=== PATIENT | female | born 1960 | race Caucasian/White ===

== ENCOUNTER 2016-12-28 14:06 | Inpatient (IN) | payer OTHER ==
[2016-12-28 14:15] VITALS: BMI 40.2
--- NOTE | 2016-12-28 14:19 | DR.GENAD ---
HPI - PCP Primary Care Physician: ANTONY - HPI Comment HPI Comment: PATIENT SAID SYMYOMS WORSE TODAY. NO FEVER. NON PRODUCTIVE COUGH. PATIENT SYMTOMS SIMILAR TO WHEN SHE SUFFER CVA IN THE PAST. - Complaint/Symptoms Chief Complaint Doctors Comments: HEADACHE, CHEST PAIN AND FORGETFULNESS TIMES 5 DAYS. Chief Complaint:: PT C/O HEADACHE THAT IS THE SAME THAT SHE HAS HAD BEFORE WHEN SHE HAD A STROKE. PT STATES SHE IS HAVING PROBLEMS REMEMBERING THINGS. (THIS IS A NEW SYMPTOM PER PT) - Nurses notes reviewed Nurses Notes Review: Yes - Source History Provided: Patient - Mode of Arrival Mode of Arrival: Ambulatory - Timing Onset of Chief Complaint: 12/22/16 Came on: Suddenly - Duration Duration: Constant Duration: Days - Severity Severity: Moderate PMH - PMH Past Medical History: Yes Past Medical History: Asthma, CVA, Diabetes, Dialysis, Hypothyroidism, Renal Disease Past Surgical History: Yes - Family History History of Family Medical Conditions: No Family Medical History: Cancer - Social History Does any household member use tobacco: No Alcohol Use: None Do you use any recreational Drugs:: No Lives With: Mom, Family Lives Where: Home - infectious screening In the last 2 months have you had wt loss of >10#?: NO Have you had fever, night sweats or hemotysis?: No Have you traveled outside the country in the last 6 months?: No Isolation: Standard ROS - Review of Systems Constitutional: Weakness, Fatigue. negative: Chills, Fever Eyes: No Symptoms Reported. negative: Eye Pain, Discharge ENTM: No Symptoms Reported. negative: Ear Pain, Nose Discharge, Nose Congestion , Throat Pain Respiratoy: Non-Productive Cough, Short of Breath, Wheezing. negative: Hemoptysis Cardiovascular: Chest Pain, Edema, Palpitations Gastrointestinal/Abdominal: negative: Abdominal Pain, Constipation, Diarrhea, Nausea, Vomiting Genitourinary: No Symptoms Reported. negative: Dysuria Neurological: Headache, Weakness, Dizziness Musculoskeletal: Muscle Pain Integumentary: No Symptoms Reported Hematologic/Lymphatic: No Symptoms Reported Endocrine: No Symptoms Reported All Other Systems: Reviewed and Negative PE - Vital Signs Vitals: Temperature 98.3 F Respiratory Rate 20 Blood Pressure 108/73 - General Limitations: No Limitations General Appearance: Alert - Head Head Exam: Normal Inspection - Eyes Eye exam: Normal Appearance - ENT ENT Exam: Normal External Ear Exam External Ear Exam: Normal External Inspection TM/Canal Exam: Bilateral Normal Nose Exam: Normal Nose Exam Mouth Exam: Normal Inspection Throat Exam: Normal Inspection - Neck Neck Exam: Trachea Midline - Chest Chest Inspection: Symmetric Chest Wall Rise - Respiratory Respiratory Exam: Respiratory Distress Respiratory Exam: Bilateral Rhonchi, Lower Rhonchi - Cardiovascular Cardiovascular Exam: Tachycardia, Normal Heart Sounds - Abdominal Exam Abdominal Exam: Normal Bowel Sounds, Soft. negative: Tenderness - Extremities Extremities Exam: Edema - Back Back Exam: Normal Inspection - Neurologic Neurological Exam: Alert, Oriented X3 - Psychiatric Psychiatric Exam: Normal Affect, Normal Mood - Skin Skin Exam: Normal Color MDM - Additional Information Additional Information Obtained From: Family - Differential Diagnosis Differential Diagnosis: HEADACHE, CHEST PAIN, SOB, Course - Treatment Treatment: SEE ORDERS. - Education/Counseling Education/Counseling: Patient, Family, Education Educated On: Diagnosis, Needs for Follow Up ROR - Labs Reviewed Laboratory Results Reviewed?: Yes Result Diagrams: 12/29/16 05:28 12/29/16 05:28 Laboratory: WBC 6.2 X10^3/uL (3.6-10.0) 12/28/16 14:41 RBC 4.37 X10^6/uL (3.5-5.4) 12/28/16 14:41 Hgb 11.2 g/dL (12.0-16.0) L 12/28/16 14:41 Hct 33.8 % (36.0-47.0) L 12/28/16 14:41 MCV 77.3 fL (80.0-100.0) L 12/28/16 14:41 MCH 25.7 pg (27.0-34.0) L 12/28/16 14:41 MCHC 33.2 g/dL (33.0-35.0) 12/28/16 14:41 RDW 25.7 % (11.6-16.5) H 12/28/16 14:41 Plt Count 236 X10^3/uL (150.0-450.0) 12/28/16 14:41 Plt Count Comment Adequate (ADEQUATE) 12/28/16 14:41 MPV 8.3 fL (7.4-11.0) 12/28/16 14:41 Neut % 47.5 % (42.0-75.0) 12/28/16 14:41 Lymph % 38.2 % (21.0-51.0) 12/28/16 14:41 Granite % 11.6 % (0.0-13.0) 12/28/16 14:41 Eos % 1.9 % (0.9-2.9) 12/28/16 14:41 Baso % 0.8 % (0.2-1.0) 12/28/16 14:41 Neut # 2.9 x10^3/uL (2.2-4.8) 12/28/16 14:41 Lymph # 2.4 X10^3/uL (1.3-2.9) 12/28/16 14:41 Granite # 0.7 x10^3/uL (0.3-0.8) 12/28/16 14:41 Eos # 0.1 x10^3/uL (0.0-0.2) 12/28/16 14:41 Baso # 0.0 X10^3/uL (0.0-0.1) 12/28/16 14:41 Absolute Nucleated RBC 0.2 /100WBC 12/28/16 14:41 Plt Morphology Comment Normal (NORMAL) 12/28/16 14:41 RBC Morphology Abnormal (NORMAL) A 12/28/16 14:41 Hypochromasia Slight A 12/28/16 14:41 Anisocytosis 3+ A 12/28/16 14:41 INR Target Range - 12/28/16 14:41 INR 1.11 (0.8-1.3) 12/28/16 14:41 PTT 24.1 SECONDS (22.9-36.5) 12/28/16 14:41 PTT Comment - 12/28/16 14:41 Sodium 132 mmol/L (136-145) L 12/28/16 14:41 Corrected Sodium 133 mmol/L (136-145) L 12/28/16 14:41 Potassium 4.9 mmol/L (3.5-5.1) 12/28/16 14:41 Chloride 95 mmol/L (98-107) L 12/28/16 14:41 Carbon Dioxide 31.4 mmol/L (21-32) 12/28/16 14:41 BUN 51 mg/dL (7-18) H 12/28/16 14:41 Creatinine 3.50 mg/dL (0.55-1.02) H 12/28/16 14:41 Est GFR (MDRD) Af Amer 17 (>60) L 12/28/16 14:41 Est GFR (MDRD) Non-Af 14 (>60) L 12/28/16 14:41 Glucose 146 mg/dL (65-99) H 12/28/16 14:41 Calcium 8.8 mg/dL (8.5-10.1) 12/28/16 14:41 Corrected Calcium TNP 12/28/16 14:41 Total Bilirubin 0.40 mg/dL (0.2-1.0) 12/28/16 14:41 AST 19 Units/L (15-37) 12/28/16 14:41 ALT 16 Units/L (12-78) 12/28/16 14:41 Alkaline Phosphatase 64 Units/L (46-116) 12/28/16 14:41 Creatine Kinase 254 Units/L (26-192) H 12/28/16 14:41 CK-MB (CK-2) < 1.0 ng/mL (0-4.0) 12/28/16 14:41 CK/CKMB % Calc 0.4 % (<4) 12/28/16 14:41 Troponin I < 0.02 ng/mL (0-1.5) 12/28/16 14:41 Total Protein 7.5 g/dL (6.4-8.2) 12/28/16 14:41 Albumin 3.4 g/dL (3.4-5.0) 12/28/16 14:41 Globulin 4.1 g/dL (2.5-4.5) 12/28/16 14:41 Albumin/Globulin Ratio 0.8 Ratio (1.1-2.1) L 12/28/16 14:41 - XRAY XRAY Interpreted by: Radiologist XRAY Findings: REPORT DISCUSS WITH PATIENT. - Diagnosis Discharge Problem: Uremia, Dehydration Chest pain Qualifiers: Chest pain type: unspecified Qualified Code(s): R07.9 - Chest pain, unspecified Headache Qualifiers: Headache type: unspecified Headache chronicity pattern: acute headache Intractability: intractable Qualified Code(s): R51 - Headache - Discharge Plan Disposition: ADMITTED INPATIENT Condition: Stable - Follow ups/Referrals - Instructions
[2016-12-28 14:48] LABS: BASOPHILS % (AUTO) 0.8 % (0.2-1.0); EOSINOPHILS # (AUTO) 0.1 x10^3/uL (0.0-0.2); EOSINOPHILS % (AUTO) 1.9 % (0.9-2.9); HEMATOCRIT 33.8 % (36.0-47.0); HEMOGLOBIN 11.2 g/dL (12.0-16.0); LYMPHOCYTES # (AUTO) 2.4 X10^3/uL (1.3-2.9); LYMPHOCYTES % (AUTO) 38.2 % (21.0-51.0); MEAN CORPUSCULAR HEMOGLOBIN 25.7 pg (27.0-34.0); MEAN CORPUSCULAR HGB CONC 33.2 g/dL (33.0-35.0); MEAN CORPUSCULAR VOLUME 77.3 fL (80.0-100.0); MEAN PLATELET VOLUME 8.3 fL (7.4-11.0); MONOCYTES # (AUTO) 0.7 x10^3/uL (0.3-0.8); MONOCYTES % (AUTO) 11.6 % (0.0-13.0); NEUTROPHILS # (AUTO) 2.9 x10^3/uL (2.2-4.8); NEUTROPHILS % (AUTO) 47.5 % (42.0-75.0); PLATELET COUNT 236 X10^3/uL (150.0-450.0); RED BLOOD COUNT 4.37 X10^6/uL (3.5-5.4); RED CELL DISTRIBUTION WIDTH 25.7 % (11.6-16.5); WHITE BLOOD COUNT 6.2 X10^3/uL (3.6-10.0)
[2016-12-28 15:07] LABS: BLOOD UREA NITROGEN 51 mg/dL (7-18); CALCIUM 8.8 mg/dL (8.5-10.1); CARBON DIOXIDE 31.4 mmol/L (21-32); CHLORIDE 95 mmol/L (98-107); COR NA(FOR HYPERGLY) 133 mmol/L (136-145); GLUCOSE 146 mg/dL (65-99); SODIUM 132 mmol/L (136-145); TROPONIN I < 0.02 ng/mL (0-1.5); eGFR BLACK RACES 17 (>60); eGFR NON BLACK RACES 14 (>60)
[2016-12-28 15:11] LABS: ALANINE AMINOTRANSFERASE 16 Units/L (12-78); ALBUMIN 3.4 g/dL (3.4-5.0); ALKALINE PHOSPHATASE 64 Units/L (46-116); ASPARTATE AMINO TRANSFERASE 19 Units/L (15-37); CKMB % 0.4 % (<4); CREATINE KINASE 254 Units/L (26-192); CREATINE KINASE MB < 1.0 ng/mL (0-4.0); TOTAL PROTEIN 7.5 g/dL (6.4-8.2)
[2016-12-28 15:13] LABS: HYPOCHROMASIA SLIGHT; PLATELET MORPHOLOGY COMMENT NORMAL (NORMAL)
[2016-12-28 15:14] LABS: ANISOCYTOSIS 3+
--- NOTE | 2016-12-28 15:43 | RAD ---
AP Chest Indication: Chest pain and weakness Comparison: None available Findings: There is elevation the right hemidiaphragm. The trachea is midline. The cardiac silhouette is unremarkable. The lungs are clear without focal infiltrate or effusion. The bony thorax is unremarkable. IMPRESSION: 1. No acute cardiopulmonary abnormality. Reported By:
--- NOTE | 2016-12-28 16:28 | CT ---
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 There is no intracranial hemorrhage or mass or edema or subdural collection of fluid. There is a small retention cyst in the floor of the right maxillary sinus medially. The calvarium is intact. Impression: No acute intracranial dizzy Reported By:
[2016-12-28] MEDS: NS 1000 ML 1,000 ML IV SCH (18:25)
[2016-12-28 19:50] LABS: BILIRUBIN,URINE NEGATIVE (NEGATIVE); BLOOD/HEMOGLOBIN,URINE NEGATIVE (NEGATIVE); GLUCOSE, URINE NEGATIVE (NEGATIVE); KETONES,URINE NEGATIVE (NEGATIVE); LEUKOCYTE ESTERASE ,URINE NEGATIVE (NEGATIVE); NITRITES,URINE NEGATIVE (NEGATIVE); PROTEIN,URINE NEGATIVE (NEGATIVE); UROBILINOGEN,URINE NORMAL (NORMAL)
[2016-12-28 19:57] LABS: AMORPHOUS SEDIMENT,UR TRACE /HPF (NEGATIVE); APPEARANCE,URINE CLEAR (CLEAR); BACTERIA,URINE TRACE /HPF (NEGATIVE); COLOR,URINE YELLOW (YELLOW); RBC,URINE 0-1 /HPF (NEGATIVE); SQUAMOUS EPITHELIAL CELL,UR FEW /HPF (NEGATIVE)
[2016-12-28] MEDS ORDERED: PATIENT'S HOME MEDICATION (Cetirizine Hcl [Zyrtec] 10 MG) PO SCH (21:00)
[2016-12-28] MEDS ORDERED: ZyrTEC TAB 10 MG PO SCH (21:00)
[2016-12-28 21:23] LABS: CKMB % 0.5 % (<4); CREATINE KINASE 217 Units/L (26-192); CREATINE KINASE MB < 1.0 ng/mL (0-4.0); TROPONIN I < 0.02 ng/mL (0-1.5)
[2016-12-28] MEDS: KLONOPIN TAB 1 MG PO SCH (22:12)
[2016-12-28] MEDS: NEURONTIN CAP 300 MG PO SCH (22:14)
[2016-12-28] MEDS: DEPAKOTE D.R. TAB PO SCH (22:14)
[2016-12-28] MEDS: ZOCOR TAB 40 MG PO SCH (22:15)
[2016-12-28] MEDS: MYSOLINE PO SCH (22:15)
[2016-12-29] MEDS: NS 1000 ML 1,000 ML IV SCH ×3 (05:29→18:34)
[2016-12-29] MEDS ORDERED: HumuLIN R ONE (05:32)
[2016-12-29] MEDS: HumuLIN R SUBCUT PRN ×2 (05:34→17:41)
[2016-12-29 05:57] LABS: BASOPHILS % (AUTO) 0.6 % (0.2-1.0); EOSINOPHILS # (AUTO) 0.1 x10^3/uL (0.0-0.2); EOSINOPHILS % (AUTO) 2.6 % (0.9-2.9); HEMATOCRIT 31.6 % (36.0-47.0); HEMOGLOBIN 10.5 g/dL (12.0-16.0); LYMPHOCYTES # (AUTO) 2.1 X10^3/uL (1.3-2.9); MEAN CORPUSCULAR HGB CONC 33.3 g/dL (33.0-35.0); MEAN CORPUSCULAR VOLUME 78.3 fL (80.0-100.0); MEAN PLATELET VOLUME 8.4 fL (7.4-11.0); MONOCYTES # (AUTO) 0.5 x10^3/uL (0.3-0.8); MONOCYTES % (AUTO) 11.9 % (0.0-13.0); NEUTROPHILS # (AUTO) 1.5 x10^3/uL (2.2-4.8); NEUTROPHILS % (AUTO) 35.9 % (42.0-75.0); PLATELET COUNT 192 X10^3/uL (150.0-450.0); RED BLOOD COUNT 4.04 X10^6/uL (3.5-5.4); RED CELL DISTRIBUTION WIDTH 25.9 % (11.6-16.5); WHITE BLOOD COUNT 4.3 X10^3/uL (3.6-10.0)
[2016-12-29 06:13] LABS: ALANINE AMINOTRANSFERASE 14 Units/L (12-78); ALBUMIN 2.8 g/dL (3.4-5.0); ALKALINE PHOSPHATASE 55 Units/L (46-116); ASPARTATE AMINO TRANSFERASE 14 Units/L (15-37); BLOOD UREA NITROGEN 43 mg/dL (7-18); CALCIUM 7.9 mg/dL (8.5-10.1); CARBON DIOXIDE 28.4 mmol/L (21-32); CHLORIDE 101 mmol/L (98-107); CHOL/HDL RATIO 5.5 (0.0-5.0); CHOLESTEROL 154 mg/dL (0-200); CKMB % 0.8 % (<4); COR CA(FOR HYPOALB) 8.9 mg/dL (8.5-10.1); COR NA(FOR HYPERGLY) 138 mmol/L (136-145); CREATINE KINASE 129 Units/L (26-192); CREATINE KINASE MB < 1.0 ng/mL (0-4.0); CREATININE 2.65 mg/dL (0.55-1.02); GLUCOSE 151 mg/dL (65-99); HDL CHOLESTEROL 28 mg/dL (40-60); SODIUM 137 mmol/L (136-145); TOTAL PROTEIN 6.4 g/dL (6.4-8.2); TRIGLYCERIDES 224 mg/dL (0-150); TROPONIN I < 0.02 ng/mL (0-1.5); eGFR BLACK RACES 24 (>60); eGFR NON BLACK RACES 20 (>60)
[2016-12-29 07:01] LABS: ANISOCYTOSIS 2+; PLATELET MORPHOLOGY COMMENT NORMAL (NORMAL)
[2016-12-29] MEDS ORDERED: PATIENT'S HOME MEDICATION (Fluoxetine Hcl [Prozac Cap 40 Mg] 40 MG) PO SCH (09:00)
[2016-12-29] MEDS: DEPAKOTE D.R. TAB PO SCH ×2 (09:54→20:58)
[2016-12-29] MEDS: ALDACTONE TAB 25 MG PO SCH (09:54)
[2016-12-29] MEDS: PROzac PO SCH (09:54)
[2016-12-29] MEDS: OSCAL+D or CALTRATE+D PO SCH (09:54)
[2016-12-29] MEDS: ZYLOPRIM PO SCH (09:55)
[2016-12-29] MEDS: ASPIRIN EC 81 MG PO SCH (09:55)
[2016-12-29] MEDS: PROTONIX TAB 40 MG PO SCH (09:55)
[2016-12-29] MEDS: NEURONTIN CAP 300 MG PO SCH ×2 (09:55→20:57)
[2016-12-29 11:11] LABS: CKMB % 0.9 % (<4); CREATINE KINASE 116 Units/L (26-192); CREATINE KINASE MB < 1.0 ng/mL (0-4.0); TROPONIN I < 0.02 ng/mL (0-1.5)
[2016-12-29] MEDS ORDERED: ZOFRAN INJ 4 MG VIAL IVP PRN (11:37)
--- NOTE | 2016-12-29 12:09 | VAS ---
HISTORY: Dizziness, visual disturbance Study: Carotid sonogram Comparison: None Technique: Multiple noriega scale and color flow Doppler images of the right and left carotid arterial system were obtained. The vertebral arterial system was evaluated as well. Findings: Normal color flow Doppler is seen throughout the right and left carotid arterial system. No hemodyn amically significant stenosis is seen based on velocity criteria. The right and left vertebral rob toni demonstrate antegrade flow. IMPRESSION: 1. No hemodynamically significant stenosis. Reported By:
--- NOTE | 2016-12-29 12:51 | DR.H&P ---
H&P - History & Physical for Day of: H&P Date: 12/28/16 - Chief Complaint Chief Complaint: UREMIA, DEHYDRATION, CHEST PAIN, HEADACHE - Allergies Allergies/Adverse Reactions: Allergies Allergy/AdvReac Type Severity Reaction Status Date / Time No Known Drug Allergies Allergy Verified 12/28/16 14:08 - History of Present Illness History of Present Illness: IS A 56 YEAR OLD PATIENT OF OURS WHO PRESENTED TO THE EMERGENCY ROOM WITH COMPLAINTS OF CHEST PAIN, HEADACHE, WEAKNESS, AND ALTERED MENTAL STATUS FOR 5 DAYS PRIOR TO COMING TO ER. SHE DENIED A PRODUCTIVE COUGH OR FEVER. SHE REPORTED A HISTORY OF CVA AND STATED THAT THESE SYMPTOMS WERE SIMILAR TO WHEN SHE WAS DIAGNOSED WITH IT. LABS AND XRAYS WERE OBTAINED. CBC WNL EXCEPT HGB 11.2, HCT 33.8. CMP WNL EXCEPT SODIUM 132, CHLORIDE 95, BUN 51, CREATININE 3.50, GLUCOSE 146, CREATININE KINASE 254. VALPROIC ACID 20.[address] REPORTED NEGATIVE FOR ACUTE INTRACRANIAL ABNORMALITY. CHEST XRAY CLEAR. CARDIAC ENZYMES WNL. EKG REPORTS SINUS RHYTHM. WE ADMITTED PATIENT FOR FURTHER TREATMENT AND EVALUATION. SHE WAS STARTED ON NS @75ML/HR AND HOME MEDICATIONS WERE REVIEWED. WE PLANNED TO CHECK SERIAL CARDIAC ENZYMES AND EKG, RECHECK LABS AND FOLLOW UP WITH PATIENT IN AM. - Past Medical History Past Medical History: Anemia, Anxiety, Asthma, CHF, COPD, CVA, Depression, Diabetes, Dialysis, GERD, Hypertension, Hypothyroidism, Renal Disease Additional Medical History: PULMONARY EMBOLISMS, CONSTIPATION, UTIs, DDD, - Past Surgical History Surgical History: Appendectomy, Other Additional Surgical History: OVARIAN CYST, CARPEL TUNNEL RIGHT ARM, NASAL POLYPS - Family History Family Medical History: Cancer - Social History Does patient currently use any type of tobacco product: No Have you used tobacco products in the last 12 months: No Type of Tobacco Use: None Does any household member use tobacco: No Alcohol Use: None Drug Use: None - Medications Home Medications: Allopurinol [ZYLOPRIM tab 100 mg *] 100 mg PO DAILY 12/28/16 [History Confirmed 12/29/16] Aspirin [Adult Low Dose Aspirin EC] 81 mg PO DAILY 12/28/16 [History Confirmed 12/29/16] Calcium Carb + Vit D [OSCAL+D or CALTRATE+D] 2 tab PO DAILY 12/28/16 [History Confirmed 12/29/16] Cetirizine HCl [Zyrtec] 10 mg PO HS 12/28/16 [History Confirmed 12/29/16] Clonazepam [Klonopin Tab 1 mg] 0.5 mg PO HS 12/28/16 [History Confirmed 12/29/16 ] Divalproex Sodium [DEPAKOTE DR TAB 250 MG Generic *] 1 tab PO BID 12/28/16 [ History Confirmed 12/29/16] Fluoxetine HCl [Prozac cap 40 mg] 40 mg PO DAILY 12/28/16 [History Confirmed 03/07] Gabapentin [Neurontin Cap 300 mg] 300 mg PO BID 12/28/16 [History Confirmed 03/07] Levothyroxine Sodium [SYNTHROID 75 mcg *] 1 tab PO DAILYAC 12/28/16 [History Confirmed 12/29/16] Pantoprazole Sodium 40 mg [Protonix Tab 40 mg] 40 mg PO DAILY 12/28/16 [History Confirmed 12/29/16] Primidone [Mysoline] 50 mg PO HS 12/28/16 [History Confirmed 12/29/16] Psyllium Husk [Metamucil] 0.4 gm PO HS 12/28/16 [History Confirmed 12/29/16] Simvastatin [Zocor Tab 40 mg] 40 mg PO HS 12/28/16 [History Confirmed 12/29/16] Spironolactone [Aldactone Tab 25 mg] 0.5 tab PO DAILY 12/28/16 [History Confirmed 12/29/16] - Physical Exam Vital Signs: Temperature 97.6 F Pulse Rate [Left Brachial] 68 Respiratory Rate 18 Blood Pressure [Left Arm] 104/56 O2 Sat by Pulse Oximetry 96 - Assessment/Plan (1) Chest pain Qualifiers: Chest pain type: unspecified Ischemic chest pain type: I Qualified Code(s ): R07.9 - Chest pain, unspecified Status: Acute Plan: SERIAL CARDIAC ENZYMES AND EKG, CONTINUE TO MONITOR (2) Dehydration Status: Acute Plan: IV FLUIDS, CONTINUE TO MONITOR LABS (3) Headache Qualifiers: Headache type: unspecified Headache chronicity pattern: acute headache Intractability: intractable Qualified Code(s): R51 - Headache Status: Acute Plan: CONTINUE TO MONITOR (4) Uremia Status: Acute Plan: IV FLUIDS, CONTINUE TO MONITOR
[2016-12-29] MEDS: SYNTHROID 75 mcg TAB PO SCH (16:30)
[2016-12-29 16:32] LABS: CKMB % 1.1 % (<4); CREATINE KINASE 95 Units/L (26-192); CREATINE KINASE MB < 1.0 ng/mL (0-4.0); TROPONIN I < 0.02 ng/mL (0-1.5)
[2016-12-29] MEDS ORDERED: SNACK - Diabetic Appropriate PO SCH (20:00)
[2016-12-29] MEDS: MYSOLINE PO SCH (20:57)
[2016-12-29] MEDS: KLONOPIN TAB 1 MG PO SCH (20:57)
[2016-12-29] MEDS: ZOCOR TAB 40 MG PO SCH (20:58)
[2016-12-29] MEDS ORDERED: ZyrTEC TAB 10 MG PO SCH (21:00)
[2016-12-29] MEDS ORDERED: PSYLLIUM HUSK 0.4 GM PO SCH (21:00)
--- NOTE | 2016-12-29 21:24 | PCM.PROG ---
Progress Note - Progress Note for Day of Date: 12/29/16 - Subjective Subjective: WAS ALERT AND ORIENTED, LYING IN BED ON MORNING ROUNDS. SHE IS NOTED WITH COMPLAINTS OF CHEST PAIN AND WEAKNESS. SHE DENIES DIZZINESS OR HEADACHE THIS MORNING. LUNGS ARE CLEAR TO AUSCULTATION. VITALS THIS AM ARE 97.8-67-18-97%-95/50. CBC REPORTS WBC 4.3, HGB 10.5, HCT 31.6. CMP REPORTS SODIUM 137, POTASSIUM 4.2, BUN 43, CREATININE 2.65, GLUCOSE 151, CALCIUM 7.9, AST 14, ALT 14, ALK PHOSPHATASE 55, TOTAL PROTEIN 6.4, ALBUMIN 2.8. TRIGLYCERIDES 224, CHOLES 154, LDL 81, HDL 28, RATIO 5.5. WE OBTAINED A CAROTID US. IT REPORTED NEGATIVE FOR STENOSIS. ECHO REPORTED EF OF 62%. WE WILL OBTAIN SERIAL EKG AND CARDIAC ENZYMES, RECHECK AM LABS, AND CONTINUE TO FOLLOW UP WITH PATIENT. - Past Medical Family Social History Past Med/Fam/Surg Hx: No changes since H&P Allergies: Allergies No Known Drug Allergies Allergy (Verified 12/28/16 14:08) - Review of Systems ROS: No change since H&P - Vital Signs and I&O's Vital Signs: Temperature 98.0 F Pulse Rate [Left Brachial] 76 Respiratory Rate 19 Blood Pressure [Left Arm] 142/68 O2 Sat by Pulse Oximetry 95 Intake and Output: Intake & Output 12/27/16 12/28/16 12/29/16 12/30/16 11:59 11:59 11:59 11:59 Intake Total 387 480 Balance 387 480 - Physical Exam Oriented: Normal Eyes: Normal Ear: Normal Nose: Normal Throat: Normal Respiratory: Normal. negative: Wheezes, Rales, Rhonchi Cardiovascular: Normal. negative: S3, S4, Murmur : Normal Auscultation: Bowel Sounds: Normal Palpation: Normal Tenderness: Normal. negative: Guarding, Rigidity Skin: Normal Musculoskeletal: Normal Psychiatric: Normal Mood Description: Calm Affect: Normal Speech Pattern: Clear, Appropriate - Laboratory and Diagnostics Result Diagrams: 12/29/16 05:28 12/29/16 05:28 Labs: Laboratory WBC 4.3 X10^3/uL (3.6-10.0) 12/29/16 05:28 RBC 4.04 X10^6/uL (3.5-5.4) 12/29/16 05:28 Hgb 10.5 g/dL (12.0-16.0) L 12/29/16 05:28 Hct 31.6 % (36.0-47.0) L 12/29/16 05:28 MCV 78.3 fL (80.0-100.0) L 12/29/16 05:28 MCH 26.0 pg (27.0-34.0) L 12/29/16 05:28 MCHC 33.3 g/dL (33.0-35.0) 12/29/16 05:28 RDW 25.9 % (11.6-16.5) H 12/29/16 05:28 Plt Count 192 X10^3/uL (150.0-450.0) 12/29/16 05:28 Plt Count Comment Adequate (ADEQUATE) 12/29/16 05:28 MPV 8.4 fL (7.4-11.0) 12/29/16 05:28 Neut % 35.9 % (42.0-75.0) L 12/29/16 05:28 Lymph % 49.0 % (21.0-51.0) 12/29/16 05:28 Pope % 11.9 % (0.0-13.0) 12/29/16 05:28 Eos % 2.6 % (0.9-2.9) 12/29/16 05:28 Baso % 0.6 % (0.2-1.0) 12/29/16 05:28 Neut # 1.5 x10^3/uL (2.2-4.8) L 12/29/16 05:28 Lymph # 2.1 X10^3/uL (1.3-2.9) 12/29/16 05:28 Pope # 0.5 x10^3/uL (0.3-0.8) 12/29/16 05:28 Eos # 0.1 x10^3/uL (0.0-0.2) 12/29/16 05:28 Baso # 0.0 X10^3/uL (0.0-0.1) 12/29/16 05:28 Absolute Nucleated RBC 0.1 /100WBC 12/29/16 05:28 Plt Morphology Comment Normal (NORMAL) 12/29/16 05:28 RBC Morphology Abnormal (NORMAL) A 12/29/16 05:28 Hypochromasia Slight A 12/28/16 14:41 Anisocytosis 2+ A 12/29/16 05:28 INR Target Range - 12/28/16 14:41 INR 1.11 (0.8-1.3) 12/28/16 14:41 PTT 24.1 SECONDS (22.9-36.5) 12/28/16 14:41 PTT Comment - 12/28/16 14:41 Sodium 137 mmol/L (136-145) 12/29/16 05:28 Corrected Sodium 138 mmol/L (136-145) 12/29/16 05:28 Potassium 4.2 mmol/L (3.5-5.1) 12/29/16 05:28 Chloride 101 mmol/L (98-107) 12/29/16 05:28 Carbon Dioxide 28.4 mmol/L (21-32) 12/29/16 05:28 BUN 43 mg/dL (7-18) H 12/29/16 05:28 Creatinine 2.65 mg/dL (0.55-1.02) H 12/29/16 05:28 Est GFR (MDRD) Af Amer 24 (>60) L 12/29/16 05:28 Est GFR (MDRD) Non-Af 20 (>60) L 12/29/16 05:28 Glucose 151 mg/dL (65-99) H 12/29/16 05:28 Calcium 7.9 mg/dL (8.5-10.1) L 12/29/16 05:28 Corrected Calcium 8.9 mg/dL (8.5-10.1) 12/29/16 05:28 Magnesium 2.0 mg/dL (1.7-2.9) 12/29/16 05:28 Total Bilirubin 0.30 mg/dL (0.2-1.0) 12/29/16 05:28 AST 14 Units/L (15-37) L 12/29/16 05:28 ALT 14 Units/L (12-78) 12/29/16 05:28 Alkaline Phosphatase 55 Units/L (46-116) 12/29/16 05:28 Creatine Kinase 95 Units/L (26-192) 12/29/16 16:03 CK-MB (CK-2) < 1.0 ng/mL (0-4.0) 12/29/16 16:03 CK/CKMB % Calc 1.1 % (<4) 12/29/16 16:03 Troponin I < 0.02 ng/mL (0-1.5) 12/29/16 16:03 Total Protein 6.4 g/dL (6.4-8.2) 12/29/16 05:28 Albumin 2.8 g/dL (3.4-5.0) L 12/29/16 05:28 Globulin 3.6 g/dL (2.5-4.5) 12/29/16 05:28 Albumin/Globulin Ratio 0.8 Ratio (1.1-2.1) L 12/29/16 05:28 Triglycerides 224 mg/dL (0-150) H 12/29/16 05:28 Cholesterol 154 mg/dL (0-200) 12/29/16 05:28 LDL Cholesterol, Calc 81 mg/dL (0-100) 12/29/16 05:28 HDL Cholesterol 28 mg/dL (40-60) L 12/29/16 05:28 Cholesterol/HDL Ratio 5.5 (0.0-5.0) H 12/29/16 05:28 Specimen Type Clean catch urine 12/28/16 19:44 Urine Color Yellow (YELLOW) 12/28/16 19:44 Urine Appearance Clear (CLEAR) 12/28/16 19:44 Urine pH 6.0 (5.0 - 8.0) 12/28/16 19:44 Ur Specific [place] 1.010 (1.000-1.030) 12/28/16 19:44 Urine Protein Negative (NEGATIVE) 12/28/16 19:44 Urine Glucose (UA) Negative (NEGATIVE) 12/28/16 19:44 Urine Ketones Negative (NEGATIVE) 12/28/16 19:44 Urine Occult Blood Negative (NEGATIVE) 12/28/16 19:44 Urine Nitrite Negative (NEGATIVE) 12/28/16 19:44 Urine Bilirubin Negative (NEGATIVE) 12/28/16 19:44 Urine Urobilinogen Normal (NORMAL) 12/28/16 19:44 Ur Leukocyte Esterase Negative (NEGATIVE) 12/28/16 19:44 Urine RBC 0-1 /HPF (NEGATIVE) 12/28/16 19:44 Urine WBC 0-1 /HPF (NEGATIVE) 12/28/16 19:44 Ur Squamous Epith Cells Few /HPF (NEGATIVE) 12/28/16 19:44 Amorphous Sediment Trace /HPF (NEGATIVE) 12/28/16 19:44 Urine Bacteria Trace /HPF (NEGATIVE) 12/28/16 19:44 Ur Culture Indicated? No/not indicated 12/28/16 19:44 Valproic Acid 20.4 ug/mL (50-100) L 12/28/16 20:55 - Plan (1) Chest pain Status: Acute Qualifiers: Chest pain type: unspecified Ischemic chest pain type: I Qualified Code(s ): R07.9 - Chest pain, unspecified Plan: SERIAL CARDIAC ENZYMES AND EKG, CONTINUE TO MONITOR (2) Dehydration Status: Acute Plan: IV FLUIDS, CONTINUE TO MONITOR LABS (3) Headache Status: Acute Qualifiers: Headache type: unspecified Headache chronicity pattern: acute headache Intractability: intractable Qualified Code(s): R51 - Headache Plan: CONTINUE TO MONITOR (4) Uremia Status: Acute Plan: IV FLUIDS, CONTINUE TO MONITOR
[2016-12-29 22:31] LABS: CKMB % 1.1 % (<4); CREATINE KINASE 90 Units/L (26-192); CREATINE KINASE MB < 1.0 ng/mL (0-4.0); TROPONIN I < 0.02 ng/mL (0-1.5)
[2016-12-30] MEDS: SYNTHROID 75 mcg TAB PO SCH (05:59)
[2016-12-30] MEDS: NS 1000 ML 1,000 ML IV SCH (06:02)
--- NOTE | 2016-12-30 06:12 | RAD ---
AP chest Indication: Chest pain Comparison: 12/28/2016 Findings: There is slight increased elevation the right hemidiaphragm compared to prior examination likely representing eventration. The lungs are clear. No pleural effusion or pneumothorax per heart size unchanged. No acute osseous abnormality. Impression: Eventration, elevation the right hemidiaphragm otherwise no radiographic abnormality. Reported By:
[2016-12-30 06:18] LABS: BASOPHILS % (AUTO) 0.6 % (0.2-1.0); EOSINOPHILS # (AUTO) 0.1 x10^3/uL (0.0-0.2); EOSINOPHILS % (AUTO) 2.5 % (0.9-2.9); HEMATOCRIT 32.6 % (36.0-47.0); HEMOGLOBIN 10.9 g/dL (12.0-16.0); LYMPHOCYTES % (AUTO) 43.5 % (21.0-51.0); MEAN CORPUSCULAR HEMOGLOBIN 26.4 pg (27.0-34.0); MEAN CORPUSCULAR HGB CONC 33.3 g/dL (33.0-35.0); MEAN CORPUSCULAR VOLUME 79.2 fL (80.0-100.0); MEAN PLATELET VOLUME 8.4 fL (7.4-11.0); MONOCYTES # (AUTO) 0.5 x10^3/uL (0.3-0.8); MONOCYTES % (AUTO) 10.7 % (0.0-13.0); NEUTROPHILS % (AUTO) 42.7 % (42.0-75.0); PLATELET COUNT 217 X10^3/uL (150.0-450.0); RED BLOOD COUNT 4.11 X10^6/uL (3.5-5.4); RED CELL DISTRIBUTION WIDTH 25.1 % (11.6-16.5); WHITE BLOOD COUNT 4.6 X10^3/uL (3.6-10.0)
[2016-12-30 06:37] LABS: ALBUMIN 2.8 g/dL (3.4-5.0); CALCIUM 8.5 mg/dL (8.5-10.1); CARBON DIOXIDE 26.1 mmol/L (21-32); COR CA(FOR HYPOALB) 9.5 mg/dL (8.5-10.1); CREATININE 1.93 mg/dL (0.55-1.02); TOTAL PROTEIN 6.6 g/dL (6.4-8.2)
[2016-12-30 06:59] LABS: ANISOCYTOSIS 2+; PLATELET MORPHOLOGY COMMENT NORMAL (NORMAL)
[2016-12-30] MEDS: ALDACTONE TAB 25 MG PO SCH (08:54)
[2016-12-30] MEDS: ASPIRIN EC 81 MG PO SCH (08:55)
[2016-12-30] MEDS: OSCAL+D or CALTRATE+D PO SCH (08:55)
[2016-12-30] MEDS: PROTONIX TAB 40 MG PO SCH (08:55)
[2016-12-30] MEDS: ZYLOPRIM PO SCH (08:55)
[2016-12-30] MEDS: NEURONTIN CAP 300 MG PO SCH (08:55)
[2016-12-30] MEDS: DEPAKOTE D.R. TAB PO SCH (08:55)
[2016-12-30] MEDS: PROzac PO SCH (08:55)
[2016-12-30 13:04] VITALS: BP 155/69
--- NOTE | 2017-01-02 10:40 | DR.CARTERD ---
- Admission Date Date of Admission: 12/28/16 - Admission Diagnoses Admission Diagnosis: (1) Chest pain (2) Dehydration (3) Headache (4) Uremia - Discharge Date Discharge Date: 12/30/16 - Discharge Diagnoses Discharge Diagnosis: (1) Chest pain (2) Dehydration (3) Headache (4) Uremia - Hospital Course Hospital Course: IS A 56 YEAR OLD PATIENT OF OURS WHO PRESENTED TO THE EMERGENCY ROOM WITH COMPLAINTS OF CHEST PAIN, HEADACHE, WEAKNESS, AND ALTERED MENTAL STATUS FOR 5 DAYS PRIOR TO COMING TO ER. SHE DENIED A PRODUCTIVE COUGH OR FEVER. SHE REPORTED A HISTORY OF CVA AND STATED THAT THESE SYMPTOMS WERE SIMILAR TO WHEN SHE WAS DIAGNOSED WITH IT. LABS AND XRAYS WERE OBTAINED. CBC WNL EXCEPT HGB 11.2 , HCT 33.8. CMP WNL EXCEPT SODIUM 132, CHLORIDE 95, BUN 51, CREATININE 3.50, GLUCOSE 146, CREATININE KINASE 254. VALPROIC ACID 20.[address] REPORTED NEGATIVE FOR ACUTE INTRACRANIAL ABNORMALITY. CHEST XRAY CLEAR. CARDIAC ENZYMES WNL. EKG REPORTS SINUS RHYTHM. WE ADMITTED PATIENT FOR FURTHER TREATMENT AND EVALUATION. SHE WAS STARTED ON NS @75ML/HR AND HOME MEDICATIONS WERE REVIEWED. WE PLANNED TO CHECK SERIAL CARDIAC ENZYMES, CHECK EKG, AND RECHECK AM LABS. ON DAY 2 OF STAY, CONTINUED WITH COMPLAINTS OF CHEST PAIN AND WEAKNESS. VITALS WERE 97.8-67-18-97%-95/50. CBC REPORTED WBC 4.3, HGB 10.5, HCT 31.6. CMP REPORTED SODIUM 137, POTASSIUM 4.2, BUN 43, CREATININE 2.65, GLUCOSE 151, CALCIUM 7.9, AST 14, ALT 14, ALK PHOSPHATASE 55, TOTAL PROTEIN 6.4, ALBUMIN 2.8. TRIGLYCERIDES 224, CHOLES 154, LDL 81, HDL 28, RATIO 5.5. CAROTID US REPORTED NEGATIVE FOR STENOSIS. ECHO REPORTED EF OF 62%. WE PLANNED TO OBTAIN SERIAL EKG AND CARDIAC ENZYMES, RECHECK AM LABS, AND CONTINUE TO FOLLOW UP WITH PATIENT. ON DAY OF DISCHARGE, PATIENT IS ALERT AND ORIENTED, SITTING UP ON SIDE OF BED. SHE HAD NO COMPLAINTS AND REPORTED FEELING WELL. SHE DENIED CHEST PAIN OR HEADACHE. VITALS WERE 97.6-82-20-95%-132/62. CBC WNL EXCEPT HGB 10.9, HCT 32.6. CMP WNL EXCEPT BUN 28, CREATININE 1.93, GLUCOSE 148, ALBUMIN 2.8. CHEST XRAY WAS CLEAR. CARDIAC ENZYMES AND EKG WNL. WE PLANNED FOR DISCHARGE. INSTRUCTIONS FOR MEDICATIONS AND FOLLOW UP WERE DISCUSSED WITH PATIENT. SHE VERBALIZED UNDERSTANDING. PATIENT DISCHARGED HOME WITH FAMILY IN STABLE CONDITION WITH NEW PRESCRIPTION FOR FUROSEMIDE 20MG PO DAILY. SHE HAS INSTRUCTIONS TO FOLLOW UP IN OUR OFFICE IN 1 WEEK. - Discharge Medications Discharge Medications: Allopurinol [ZYLOPRIM tab 100 mg *] 100 mg PO DAILY 12/28/16 [History] Aspirin [Adult Low Dose Aspirin EC] 81 mg PO DAILY 12/28/16 [History] Calcium Carb + Vit D [OSCAL+D or CALTRATE+D] 2 tab PO DAILY 12/28/16 [History] Cetirizine HCl [Zyrtec] 10 mg PO HS 12/28/16 [History] Clonazepam [KLONOPIN TAB 1 MG *] 0.5 mg PO HS 12/28/16 [History] Divalproex Sodium [DEPAKOTE DR TAB 250 MG Generic *] 1 tab PO BID 12/28/16 [ History] Fluoxetine HCl [Prozac cap 40 mg] 40 mg PO DAILY 12/28/16 [History] Gabapentin [NEURONTIN CAP 300 mg *] 300 mg PO BID 12/28/16 [History] Levothyroxine Sodium [SYNTHROID 75 mcg *] 1 tab PO DAILYAC 12/28/16 [History] Pantoprazole Sodium 40 mg [PROTONIX 40 MG *] 40 mg PO DAILY 12/28/16 [History] Primidone [MYSOLINE 50 MG *] 50 mg PO HS 12/28/16 [History] Psyllium Husk [Metamucil] 0.4 gm PO HS 12/28/16 [History] Simvastatin [ZOCOR 40 MG *] 40 mg PO HS 12/28/16 [History] Furosemide 20 mg PO DAILY #30 tablet 12/30/16 [Rx]
== END 2016-12-30 13:06 | disposition home or self-care (01) | DRG 313 ==
LOC: ER 14:25 → OBS 18:54
PROVIDERS: ADMIT Internal Medicine; ATTEND Internal Medicine
DX: R07.9 Chest pain, unspecified (principal); R51 Headache; N19 Unspecified kidney failure; R41.82 Altered mental status, unspecified; E86.0 Dehydration
CPT/HCPCS: 36415; 70450; 71010; 80053; 80061; 80164; 81001; 82550; 82553; 83735; 84484; 85025; 85610; 85730; 92523; 93005; 93306; 93880; 94760; 96365; 99284; A4222; J1815

== ENCOUNTER 2018-02-22 12:53 | Observation (INO) ==
[2018-02-22] MEDS ORDERED: PATIENT'S HOME MEDICATION PO SCH (14:30)
[2018-02-22] MEDS: NS 1000 ML 1,000 ML IV SCH (14:55)
[2018-02-22 15:23] LABS: BASOPHILS % (AUTO) 0.6 % (0.2-1.0); EOSINOPHILS % (AUTO) 0.2 % (0.9-2.9); HEMATOCRIT 37.1 % (36.0-47.0); HEMOGLOBIN 12.7 g/dL (12.0-16.0); LYMPHOCYTES # (AUTO) 1.1 X10^3/uL (1.3-2.9); LYMPHOCYTES % (AUTO) 16.1 % (21.0-51.0); MEAN CORPUSCULAR HEMOGLOBIN 29.3 pg (27.0-34.0); MEAN CORPUSCULAR HGB CONC 34.2 g/dL (33.0-35.0); MEAN CORPUSCULAR VOLUME 85.8 fL (80.0-100.0); MEAN PLATELET VOLUME 8.6 fL (7.4-11.0); MONOCYTES # (AUTO) 0.9 x10^3/uL (0.3-0.8); MONOCYTES % (AUTO) 12.7 % (0.0-13.0); NEUTROPHILS # (AUTO) 4.8 x10^3/uL (2.2-4.8); NEUTROPHILS % (AUTO) 70.4 % (42.0-75.0); PLATELET COUNT 166 X10^3/uL (150.0-450.0); RED BLOOD COUNT 4.33 X10^6/uL (3.5-5.4); RED CELL DISTRIBUTION WIDTH 14.5 % (11.6-16.5); WHITE BLOOD COUNT 6.9 X10^3/uL (3.6-10.0)
[2018-02-22 15:28] LABS: ALBUMIN 2.5 g/dL (3.4-5.0); CALCIUM 8.2 mg/dL (8.5-10.1); CARBON DIOXIDE 25.9 mmol/L (21-32); COR CA(FOR HYPOALB) 9.4 mg/dL (8.5-10.1); CREATININE 1.62 mg/dL (0.55-1.02)
[2018-02-22 17:05] VITALS: BMI 43.0
[2018-02-22] MEDS ORDERED: POTASSIUM CHLORIDE LIQ 20 MEQ UDC PO ONE (17:42)
[2018-02-22] MEDS: HumuLIN R SC PRN (18:01)
--- NOTE | 2018-02-22 18:20 | RAD ---
History: Syncope and seizure activity Study: Upright portable AP chest Comparison: December 30, 2016 Findings: The lungs are clear and the heart and mediastinum are unremarkable. There is no edema or ef fusion. No significant bony abnormality is demonstrated. Impression: No evidence for active cardiopulmonary disease Reported By:
[2018-02-22] MEDS ORDERED: TYLENOL 325 MG TAB PO PRN (19:35)
--- NOTE | 2018-02-22 20:34 | MRI ---
MRI OF THE BRAIN WITHOUT IV CONTRAST MRA OF THE BRAIN WITHOUT IV CONTRAST CLINICAL INDICATION: Syncope and falls TECHNIQUE: Pre-contrast T1-w, T2, and diffusion-w sequences of the brain with ADC maps. 3-D time-of-f light imaging of the intracranial circulation was performed. COMPARISON: Head CT 12/28/2016, MRI 06/04/2015 FINDINGS: MRI brain: Diffuse patchy and confluent periventricular and subcortical T2/FLAIR signal with associat ed volume loss. Multiple small bilateral lacunar infarcts which are grossly unchanged. There is no ma ss or mass-effect, or abnormal extra-axial fluid collection. Diffusion imaging shows no hyperacute, acute, or early subacute infarction. Age-related, ex-vacuo dilatation of the ventricles and sulci. Th ere are normal signal voids in the larger intracranial vessels. The paranasal sinuses and mastoid air cells are predominantly clear. The marrow signal pattern is within normal limits. There is no abnormal brain parenchymal or leptomeningeal enhancement. MRA head:The anterior circulation demonstrates normal anatomic findings. The internal carotid artery , M1 segment, and A1 segments do not demonstrates atherosclerotic changes. No aneurysmal changes or evidence for vascular malformation can be identified. The posterior circulation demonstrates a poste rior communicating artery on the right and left. The right vertebral artery terminates in the right PICA. IMPRESSION: 1. 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 2. Other than congenital variants, grossly unremarkable MRA. Reported By: Reported By:
[2018-02-22] MEDS ORDERED: MAGNESIUM SULFATE 1 GRAM/100 mL PREMIX 1 G/100 ML BAG IV ONE (21:04)
[2018-02-22] MEDS: DUONEB 0.5 MG/3 MG NEB SCH (21:05)
[2018-02-22] MEDS: PULMICORT NEB TX 0.5 MG NEB SCH (21:05)
[2018-02-22] MEDS: LEVEMIR SC SCH (21:16)
[2018-02-22] MEDS: SNACK - Diabetic Appropriate PO SCH (21:17)
[2018-02-22] MEDS: ULTRAM PO PRN (21:17)
[2018-02-23] MEDS: DUONEB 0.5 MG/3 MG NEB SCH ×6 (00:54→20:00)
[2018-02-23 04:16] LABS: BILIRUBIN,URINE NEGATIVE (NEGATIVE); BLOOD/HEMOGLOBIN,URINE 2+ (NEGATIVE); GLUCOSE, URINE 4+ (NEGATIVE); KETONES,URINE 1+ (NEGATIVE); LEUKOCYTE ESTERASE ,URINE NEGATIVE (NEGATIVE); NITRITES,URINE NEGATIVE (NEGATIVE); PROTEIN,URINE 2+ (NEGATIVE); UROBILINOGEN,URINE NORMAL (NORMAL)
[2018-02-23 04:20] LABS: APPEARANCE,URINE CLEAR (CLEAR); COLOR,URINE YELLOW (YELLOW)
[2018-02-23 04:21] LABS: BACTERIA,URINE NEGATIVE /HPF (NEGATIVE); SQUAMOUS EPITHELIAL CELL,UR FEW /HPF (NEGATIVE)
[2018-02-23] MEDS: NS 1000 ML 1,000 ML IV SCH ×3 (05:18→19:10)
[2018-02-23 05:22] LABS: BASOPHILS % (AUTO) 0.3 % (0.2-1.0); EOSINOPHILS % (AUTO) 0.7 % (0.9-2.9); HEMATOCRIT 35.7 % (36.0-47.0); HEMOGLOBIN 12.2 g/dL (12.0-16.0); LYMPHOCYTES # (AUTO) 1.3 X10^3/uL (1.3-2.9); LYMPHOCYTES % (AUTO) 19.7 % (21.0-51.0); MEAN CORPUSCULAR HEMOGLOBIN 29.2 pg (27.0-34.0); MEAN CORPUSCULAR VOLUME 85.9 fL (80.0-100.0); MEAN PLATELET VOLUME 8.2 fL (7.4-11.0); NEUTROPHILS # (AUTO) 4.3 x10^3/uL (2.2-4.8); NEUTROPHILS % (AUTO) 64.3 % (42.0-75.0); PLATELET COUNT 152 X10^3/uL (150.0-450.0); RED BLOOD COUNT 4.16 X10^6/uL (3.5-5.4); RED CELL DISTRIBUTION WIDTH 14.9 % (11.6-16.5); WHITE BLOOD COUNT 6.7 X10^3/uL (3.6-10.0)
[2018-02-23] MEDS: ULTRAM PO PRN ×2 (05:30→09:45)
[2018-02-23 05:38] LABS: ALBUMIN 2.4 g/dL (3.4-5.0); CARBON DIOXIDE 28.5 mmol/L (21-32); COR CA(FOR HYPOALB) 9.3 mg/dL (8.5-10.1); CREATININE 1.52 mg/dL (0.55-1.02); TOTAL PROTEIN 5.9 g/dL (6.4-8.2)
[2018-02-23] MEDS ORDERED: POTASSIUM CHLORIDE LIQ 20 MEQ UDC PO ONE (06:00)
[2018-02-23] MEDS: LEVEMIR SC SCH ×2 (08:31→20:34)
[2018-02-23] MEDS: PULMICORT NEB TX 0.5 MG NEB SCH ×2 (08:43→20:00)
--- NOTE | 2018-02-23 10:28 | DR.UPDATE ---
H&P Update History and Physical Update: WAS SEEN IN THE OFFICE TODAY. A H&P WAS COMPLETED PRIOR TO ADMISSION. PATIENT HAS BEEN SEEN AND EXAMINED WITH NO CHANGES NOTED TO H&P Changes noted: NO Yes with the following:
[2018-02-23] MEDS ORDERED: OSCAL D PO SCH (10:30)
--- NOTE | 2018-02-23 11:05 | RAD ---
HISTORY: Right hip pain after multiple falls Study: Two views right hip Comparison: None Findings: The bony pelvis appears grossly intact with degenerative changes of the lumbosacral spine and bilater al hip joints. No acute displaced fracture or dislocation is identified. Exam limited by patient body habitus. IMPRESSION: 1. No acute osseous abnormality identified. Reported By:
[2018-02-23] MEDS ORDERED: DEPAKOTE D.R. TAB PO ONE ×2 (11:22→19:43)
[2018-02-23] MEDS: SYNTHROID 88 mcg TAB PO SCH (11:28)
[2018-02-23] MEDS: ALDACTONE TAB 25 MG PO SCH (11:28)
[2018-02-23] MEDS: PROTONIX TAB 40 MG PO SCH (11:28)
[2018-02-23] MEDS: ASPIRIN EC 81 MG PO SCH (11:28)
[2018-02-23] MEDS: PROzac PO SCH (11:29)
[2018-02-23] MEDS: DEPAKOTE D.R. TAB PO SCH ×2 (11:29→20:19)
[2018-02-23] MEDS: NEURONTIN CAP 300 MG PO SCH ×2 (11:29→20:21)
[2018-02-23] MEDS: MICRO K EXTEN CAP 10 MEQ PO SCH (11:29)
[2018-02-23] MEDS: OSCAL+D or CALTRATE+D PO SCH (11:29)
[2018-02-23] MEDS: ZYLOPRIM PO SCH (11:29)
[2018-02-23] MEDS: MYSOLINE PO SCH ×2 (11:30→20:19)
[2018-02-23] MEDS: PLAVIX PO SCH (11:30)
[2018-02-23] MEDS: MILK OF MAGNESIA PO SCH ×2 (13:37→20:21)
[2018-02-23] MEDS: PERCOCET TAB 5/325 MG PO PRN ×2 (13:43→19:09)
[2018-02-23] MEDS: HumuLIN R SC PRN (16:57)
[2018-02-23] MEDS: KLONOPIN TAB 1 MG PO SCH (20:19)
[2018-02-23] MEDS: ZOCOR TAB 40 MG PO SCH (20:20)
[2018-02-23] MEDS: COLACE CAP 100 MG PO SCH (20:20)
[2018-02-23] MEDS: SNACK - Diabetic Appropriate PO SCH (20:23)
[2018-02-23] MEDS ORDERED: PSYLLIUM HUSK PO SCH (21:00)
[2018-02-23] MEDS ORDERED: ZyrTEC TAB 10 MG PO SCH (21:00)
[2018-02-24] MEDS: NS 1000 ML 1,000 ML IV SCH ×3 (00:35→18:51)
[2018-02-24] MEDS: PERCOCET TAB 5/325 MG PO PRN ×4 (00:41→18:35)
[2018-02-24] MEDS: DUONEB 0.5 MG/3 MG NEB SCH (00:48)
[2018-02-24] MEDS ORDERED: DUONEB 0.5 MG/3 MG NEB PRN (00:54)
[2018-02-24 05:39] LABS: BASOPHILS % (AUTO) 0.4 % (0.2-1.0); EOSINOPHILS # (AUTO) 0.1 x10^3/uL (0.0-0.2); EOSINOPHILS % (AUTO) 1.8 % (0.9-2.9); HEMATOCRIT 35.5 % (36.0-47.0); HEMOGLOBIN 11.9 g/dL (12.0-16.0); LYMPHOCYTES # (AUTO) 1.5 X10^3/uL (1.3-2.9); LYMPHOCYTES % (AUTO) 23.2 % (21.0-51.0); MEAN CORPUSCULAR HEMOGLOBIN 29.3 pg (27.0-34.0); MEAN CORPUSCULAR HGB CONC 33.5 g/dL (33.0-35.0); MEAN CORPUSCULAR VOLUME 87.4 fL (80.0-100.0); MEAN PLATELET VOLUME 8.3 fL (7.4-11.0); MONOCYTES # (AUTO) 0.8 x10^3/uL (0.3-0.8); MONOCYTES % (AUTO) 12.5 % (0.0-13.0); NEUTROPHILS # (AUTO) 4.1 x10^3/uL (2.2-4.8); NEUTROPHILS % (AUTO) 62.1 % (42.0-75.0); PLATELET COUNT 161 X10^3/uL (150.0-450.0); RED BLOOD COUNT 4.06 X10^6/uL (3.5-5.4); RED CELL DISTRIBUTION WIDTH 14.8 % (11.6-16.5); WHITE BLOOD COUNT 6.6 X10^3/uL (3.6-10.0)
[2018-02-24] MEDS: HumuLIN R SC PRN ×3 (05:40→16:10)
[2018-02-24 05:53] LABS: ALBUMIN 2.5 g/dL (3.4-5.0); CALCIUM 7.9 mg/dL (8.5-10.1); CARBON DIOXIDE 26.5 mmol/L (21-32); COR CA(FOR HYPOALB) 9.1 mg/dL (8.5-10.1); CREATININE 1.41 mg/dL (0.55-1.02); TOTAL PROTEIN 6.6 g/dL (6.4-8.2)
[2018-02-24 06:52] LABS: BASOPHILS % (MANUAL) 1 % (0-1)
[2018-02-24 06:53] LABS: BAND NEUTROPHILS % 4 % (0-10)
[2018-02-24 06:55] LABS: PLATELET MORPHOLOGY COMMENT NORMAL (NORMAL)
[2018-02-24] MEDS ORDERED: DEPAKOTE D.R. TAB PO ONE ×2 (08:41→20:15)
[2018-02-24] MEDS: PULMICORT NEB TX 0.5 MG NEB SCH ×2 (08:54→20:08)
[2018-02-24] MEDS: DUONEB 0.5 MG/3 MG NEB PRN ×2 (08:54→20:08)
[2018-02-24] MEDS: ZYLOPRIM PO SCH (08:59)
[2018-02-24] MEDS: PROTONIX TAB 40 MG PO SCH (08:59)
[2018-02-24] MEDS: NEURONTIN CAP 300 MG PO SCH ×2 (08:59→20:43)
[2018-02-24] MEDS: ALDACTONE TAB 25 MG PO SCH (08:59)
[2018-02-24] MEDS: OSCAL+D or CALTRATE+D PO SCH (08:59)
[2018-02-24] MEDS: MILK OF MAGNESIA PO SCH ×2 (08:59→20:42)
[2018-02-24] MEDS: DEPAKOTE D.R. TAB PO SCH ×2 (09:00→20:43)
[2018-02-24] MEDS: MICRO K EXTEN CAP 10 MEQ PO SCH (09:00)
[2018-02-24] MEDS: PROzac PO SCH (09:00)
[2018-02-24] MEDS: ASPIRIN EC 81 MG PO SCH (09:00)
[2018-02-24] MEDS: LEVEMIR SC SCH ×2 (09:01→23:47)
[2018-02-24] MEDS: PLAVIX PO SCH (09:01)
[2018-02-24] MEDS: SYNTHROID 88 mcg TAB PO SCH (09:01)
[2018-02-24] MEDS: MYSOLINE PO SCH ×2 (09:01→20:43)
[2018-02-24] MEDS: ULTRAM PO PRN (14:09)
[2018-02-24] MEDS: COLACE CAP 100 MG PO SCH (20:43)
[2018-02-24] MEDS: ZOCOR TAB 40 MG PO SCH (20:44)
[2018-02-24] MEDS: KLONOPIN TAB 1 MG PO SCH (20:44)
[2018-02-24] MEDS: SNACK - Diabetic Appropriate PO SCH (20:46)
[2018-02-24] MEDS ORDERED: ZyrTEC TAB 10 MG PO SCH (21:00)
[2018-02-25] MEDS: PERCOCET TAB 5/325 MG PO PRN ×3 (00:43→13:57)
[2018-02-25] MEDS: NS 1000 ML 1,000 ML IV SCH ×4 (03:00→13:53)
[2018-02-25 05:34] LABS: ALBUMIN 2.4 g/dL (3.4-5.0); CALCIUM 7.8 mg/dL (8.5-10.1); CARBON DIOXIDE 29.1 mmol/L (21-32); COR CA(FOR HYPOALB) 9.1 mg/dL (8.5-10.1); CREATININE 1.5 mg/dL (0.55-1.02); TOTAL PROTEIN 6.5 g/dL (6.4-8.2)
[2018-02-25 05:35] LABS: BASOPHILS % (AUTO) 0.5 % (0.2-1.0); EOSINOPHILS # (AUTO) 0.2 x10^3/uL (0.0-0.2); EOSINOPHILS % (AUTO) 2.8 % (0.9-2.9); HEMATOCRIT 34.1 % (36.0-47.0); HEMOGLOBIN 11.5 g/dL (12.0-16.0); LYMPHOCYTES # (AUTO) 1.1 X10^3/uL (1.3-2.9); LYMPHOCYTES % (AUTO) 18.9 % (21.0-51.0); MEAN CORPUSCULAR HEMOGLOBIN 29.4 pg (27.0-34.0); MEAN CORPUSCULAR HGB CONC 33.7 g/dL (33.0-35.0); MEAN CORPUSCULAR VOLUME 87.4 fL (80.0-100.0); MONOCYTES # (AUTO) 0.7 x10^3/uL (0.3-0.8); MONOCYTES % (AUTO) 11.4 % (0.0-13.0); NEUTROPHILS % (AUTO) 66.4 % (42.0-75.0); PLATELET COUNT 185 X10^3/uL (150.0-450.0); RED CELL DISTRIBUTION WIDTH 14.9 % (11.6-16.5)
[2018-02-25 06:16] LABS: BAND NEUTROPHILS % 6 % (0-10); BASOPHILS % (MANUAL) 2 % (0-1); PLATELET MORPHOLOGY COMMENT NORMAL (NORMAL)
[2018-02-25] MEDS ORDERED: DEPAKOTE D.R. TAB PO ONE (08:42)
[2018-02-25] MEDS: DUONEB 0.5 MG/3 MG NEB PRN (08:42)
[2018-02-25] MEDS: PULMICORT NEB TX 0.5 MG NEB SCH (08:42)
[2018-02-25] MEDS: ASPIRIN EC 81 MG PO SCH (08:49)
[2018-02-25] MEDS: SYNTHROID 88 mcg TAB PO SCH (08:49)
[2018-02-25] MEDS: ZYLOPRIM PO SCH (08:49)
[2018-02-25] MEDS: MYSOLINE PO SCH (08:49)
[2018-02-25] MEDS: MICRO K EXTEN CAP 10 MEQ PO SCH (08:50)
[2018-02-25] MEDS: DEPAKOTE D.R. TAB PO SCH (08:50)
[2018-02-25] MEDS: PLAVIX PO SCH (08:50)
[2018-02-25] MEDS: OSCAL+D or CALTRATE+D PO SCH (08:50)
[2018-02-25] MEDS: NEURONTIN CAP 300 MG PO SCH (08:50)
[2018-02-25] MEDS: PROzac PO SCH (08:50)
[2018-02-25] MEDS: ALDACTONE TAB 25 MG PO SCH (08:50)
[2018-02-25] MEDS: PROTONIX TAB 40 MG PO SCH (08:50)
[2018-02-25] MEDS: LEVEMIR SC SCH (08:51)
[2018-02-25] MEDS: MILK OF MAGNESIA PO SCH (08:51)
[2018-02-25] MEDS: HumuLIN R SC PRN (11:15)
[2018-02-25 12:11] VITALS: BP 154/67
== END 2018-02-25 15:40 | disposition home or self-care (01) ==
LOC: MED/SURG
PROVIDERS: ADMIT Internal Medicine; ATTEND Internal Medicine
DX: Z86.73 Personal history of transient ischemic attack (TIA), and cerebral infarction without residual deficits; E87.6 Hypokalemia; I25.10 Atherosclerotic heart disease of native coronary artery without angina pectoris; E11.65 Type 2 diabetes mellitus with hyperglycemia; M25.551 Pain in right hip; R25.1 Tremor, unspecified; Z91.81 History of falling; R06.02 Shortness of breath; R82.998 Other abnormal findings in urine; J44.9 Chronic obstructive pulmonary disease, unspecified; I10 Essential (primary) hypertension; R55 Syncope and collapse; W19.XXXA Unspecified fall, initial encounter; R41.82 Altered mental status, unspecified; M54.9 Dorsalgia, unspecified; R26.81 Unsteadiness on feet; Y99.9 Unspecified external cause status; Y92.9 Unspecified place or not applicable
CPT/HCPCS: 36415; 70544; 70551; 71010; 71045; 73501; 80053; 81001; 83036; 83735; 84132; 85025; 87086; 94640; 94669; 94760; 96367; 96372; 97162; 97166; A4216; A4222; G0378; J1815; J3475; J7030; J7620; J7626

== ENCOUNTER 2018-08-01 12:28 | Observation (INO) ==
[2018-08-01 15:24] LABS: BASOPHILS % (AUTO) 0.9 % (0.2-1.0); EOSINOPHILS # (AUTO) 0.1 x10^3/uL (0.0-0.2); EOSINOPHILS % (AUTO) 2.6 % (0.9-2.9); HEMATOCRIT 33.7 % (36.0-47.0); HEMOGLOBIN 11.3 g/dL (12.0-16.0); LYMPHOCYTES # (AUTO) 1.9 X10^3/uL (1.3-2.9); LYMPHOCYTES % (AUTO) 33.1 % (21.0-51.0); MEAN CORPUSCULAR HEMOGLOBIN 29.8 pg (27.0-34.0); MEAN CORPUSCULAR HGB CONC 33.5 g/dL (33.0-35.0); MEAN CORPUSCULAR VOLUME 88.7 fL (80.0-100.0); MEAN PLATELET VOLUME 8.5 fL (7.4-11.0); MONOCYTES # (AUTO) 0.4 x10^3/uL (0.3-0.8); MONOCYTES % (AUTO) 7.6 % (0.0-13.0); NEUTROPHILS # (AUTO) 3.1 x10^3/uL (2.2-4.8); NEUTROPHILS % (AUTO) 55.8 % (42.0-75.0); PLATELET COUNT 237 X10^3/uL (150.0-450.0); RED CELL DISTRIBUTION WIDTH 15.2 % (11.6-16.5); WHITE BLOOD COUNT 5.6 X10^3/uL (3.6-10.0)
[2018-08-01 15:40] LABS: ALBUMIN 3.1 g/dL (3.4-5.0); CALCIUM 8.4 mg/dL (8.5-10.1); CARBON DIOXIDE 28.3 mmol/L (21-32); COR CA(FOR HYPOALB) 9.1 mg/dL (8.5-10.1); CREATININE 2.44 mg/dL (0.55-1.02); TOTAL PROTEIN 6.6 g/dL (6.4-8.2)
--- NOTE | 2018-08-01 15:49 | RAD ---
Exam: Portable chest History: 58-year-old female with shortness of breath. Comparison: Previous chest radiograph from 04/05/2018 Findings: Heart size and pulmonary vasculature are normal. Lungs are clear with no infiltrate or significant effusion on either side. Bony thorax is unremarkable as well. Impression: No acute cardiopulmonary abnormality is seen on this exam. Reported By:
[2018-08-01] MEDS: DUONEB 0.5 MG/3 MG NEB SCH ×2 (16:10→20:22)
[2018-08-01 16:16] VITALS: BMI 43.9
[2018-08-01] MEDS: NS 1000 ML 1,000 ML IV SCH (17:32)
[2018-08-01] MEDS: ROCEPHIN VIAL 1 GRAM IVP SCH (17:32)
[2018-08-01] MEDS: LASIX IVP SCH ×2 (17:33→20:58)
[2018-08-01] MEDS: NEURONTIN CAP 300 MG PO SCH (20:57)
[2018-08-01] MEDS: ZOCOR TAB 40 MG PO SCH (20:57)
[2018-08-01] MEDS: KLONOPIN TAB 0.5 MG PO SCH (20:57)
[2018-08-01] MEDS: DEPAKOTE ER PO SCH (20:58)
[2018-08-01] MEDS: MYSOLINE PO SCH (21:01)
[2018-08-02] MEDS ORDERED: D50W ABBOJECT SYR ONE (05:51)
[2018-08-02] MEDS ORDERED: D50W ABBOJECT SYR IV ONE (06:05)
[2018-08-02 06:27] LABS: BASOPHILS # (AUTO) 0.1 X10^3/uL (0.0-0.1); EOSINOPHILS # (AUTO) 0.2 x10^3/uL (0.0-0.2); EOSINOPHILS % (AUTO) 3.7 % (0.9-2.9); HEMATOCRIT 33.8 % (36.0-47.0); HEMOGLOBIN 11.3 g/dL (12.0-16.0); LYMPHOCYTES # (AUTO) 3.2 X10^3/uL (1.3-2.9); LYMPHOCYTES % (AUTO) 49.5 % (21.0-51.0); MEAN CORPUSCULAR HEMOGLOBIN 29.5 pg (27.0-34.0); MEAN CORPUSCULAR HGB CONC 33.3 g/dL (33.0-35.0); MEAN CORPUSCULAR VOLUME 88.4 fL (80.0-100.0); MEAN PLATELET VOLUME 9.3 fL (7.4-11.0); MONOCYTES # (AUTO) 0.6 x10^3/uL (0.3-0.8); MONOCYTES % (AUTO) 9.6 % (0.0-13.0); NEUTROPHILS # (AUTO) 2.3 x10^3/uL (2.2-4.8); NEUTROPHILS % (AUTO) 36.2 % (42.0-75.0); PLATELET COUNT 173 X10^3/uL (150.0-450.0); RED BLOOD COUNT 3.82 X10^6/uL (3.5-5.4); RED CELL DISTRIBUTION WIDTH 15.1 % (11.6-16.5); WHITE BLOOD COUNT 6.4 X10^3/uL (3.6-10.0)
[2018-08-02 06:28] LABS: ALANINE AMINOTRANSFERASE 16 Units/L (12-78); ALBUMIN 2.9 g/dL (3.4-5.0); ALKALINE PHOSPHATASE 59 Units/L (46-116); ASPARTATE AMINO TRANSFERASE 24 Units/L (15-37); BLOOD UREA NITROGEN 37 mg/dL (7-18); CALCIUM 8.6 mg/dL (8.5-10.1); CARBON DIOXIDE 25.1 mmol/L (21-32); CHLORIDE 105 mmol/L (98-107); COR CA(FOR HYPOALB) 9.5 mg/dL (8.5-10.1); CREATININE 1.93 mg/dL (0.55-1.02); SODIUM 143 mmol/L (136-145); TOTAL PROTEIN 6.6 g/dL (6.4-8.2); eGFR NON BLACK RACES 28 (>60)
[2018-08-02] MEDS: NS 1000 ML 1,000 ML IV SCH ×2 (06:47→20:43)
[2018-08-02 06:54] LABS: B-TYPE NATRIURETIC PEPTIDE 137 pg/mL (0-79)
--- NOTE | 2018-08-02 07:43 | RAD ---
HISTORY: Shortness of breath Study: Chest AP portable Comparison: 08/01/2018 Findings: The heart is within normal limits in size. The romana are normal. The lung colon are clear. No pleural effusions are identified. The bony thorax is unremarkable. IMPRESSION: Lungs clear Reported By:
--- NOTE | 2018-08-02 08:24 | DR.UPDATE ---
H&P Update History and Physical Update: WAS SEEN IN THE OFFICE TODAY WITH COMPLAINTS OF SHORTNESS OF BREATH THAT IS WORSE ON EXERTION. SHE DENIES IMPROVEMENT WITH BREATHING TX AT HOME. SHE WAS ADMITTED FOR FURTHER EVALUATION AND TREATMENT OF CHF EXACERBATION. A H&P WAS COMPLETED PRIOR TO ADMISSION. SHE WAS STARTED ON LASIX 20MG IV BID AND RESPIRATORY TX. WE WILL OBTAIN LABS AND CHEST XRAY ON ADMISSION. OTHERWISE, WE WILL FOLLOW UP WITH AM LABS AND CONTINUE TO MONITOR. NO CHANGES NOTED TO H&P. Changes noted: NO
[2018-08-02] MEDS: K-DUR TAB 20 MEQ PO SCH (09:03)
[2018-08-02] MEDS: LASIX IVP SCH (09:03)
[2018-08-02] MEDS: DEPAKOTE ER PO SCH ×2 (09:03→20:45)
[2018-08-02] MEDS: ASPIRIN EC 81 MG PO SCH (09:03)
[2018-08-02] MEDS: ZYLOPRIM PO SCH (09:03)
[2018-08-02] MEDS: ROCEPHIN VIAL 1 GRAM IVP SCH (09:03)
[2018-08-02] MEDS: LOPRESSOR TAB 50 MG PO SCH (09:03)
[2018-08-02] MEDS: NEURONTIN CAP 300 MG PO SCH ×2 (09:03→20:44)
[2018-08-02] MEDS: PROzac PO SCH (09:03)
[2018-08-02] MEDS: MYSOLINE PO SCH ×3 (09:04→20:45)
[2018-08-02] MEDS: DUONEB 0.5 MG/3 MG NEB SCH ×4 (09:06→20:43)
[2018-08-02] MEDS ORDERED: PSYLLIUM HUSK PO SCH (10:15)
[2018-08-02] MEDS: PROTONIX TAB 40 MG PO SCH (10:25)
[2018-08-02] MEDS: OSCAL+D or CALTRATE+D PO SCH ×3 (10:25→22:20)
[2018-08-02] MEDS: NORCO 5/325 MG TAB PO PRN ×2 (10:25→17:28)
[2018-08-02] MEDS ORDERED: SYNTHROID 88 mcg TAB PO SCH (16:30)
[2018-08-02] MEDS ORDERED: SNACK - Diabetic Appropriate PO SCH (20:00)
[2018-08-02] MEDS: KLONOPIN TAB 0.5 MG PO SCH (20:44)
[2018-08-02] MEDS: ZOCOR TAB 40 MG PO SCH (20:44)
[2018-08-02] MEDS ORDERED: AMBIEN ONE (23:57)
[2018-08-02] MEDS: AMBIEN PO PRN (23:58)
[2018-08-03] MEDS: AMBIEN PO PRN (00:32)
[2018-08-03] MEDS: OSCAL+D or CALTRATE+D PO SCH ×2 (05:56→13:28)
[2018-08-03 06:21] LABS: BASOPHILS % (AUTO) 1.1 % (0.2-1.0); EOSINOPHILS # (AUTO) 0.2 x10^3/uL (0.0-0.2); EOSINOPHILS % (AUTO) 5.2 % (0.9-2.9); HEMATOCRIT 32.2 % (36.0-47.0); HEMOGLOBIN 10.9 g/dL (12.0-16.0); LYMPHOCYTES # (AUTO) 2.3 X10^3/uL (1.3-2.9); LYMPHOCYTES % (AUTO) 49.5 % (21.0-51.0); MEAN CORPUSCULAR HEMOGLOBIN 29.9 pg (27.0-34.0); MEAN CORPUSCULAR HGB CONC 33.8 g/dL (33.0-35.0); MEAN CORPUSCULAR VOLUME 88.6 fL (80.0-100.0); MEAN PLATELET VOLUME 8.2 fL (7.4-11.0); MONOCYTES # (AUTO) 0.4 x10^3/uL (0.3-0.8); MONOCYTES % (AUTO) 8.9 % (0.0-13.0); NEUTROPHILS # (AUTO) 1.6 x10^3/uL (2.2-4.8); NEUTROPHILS % (AUTO) 35.3 % (42.0-75.0); PLATELET COUNT 222 X10^3/uL (150.0-450.0); RED BLOOD COUNT 3.64 X10^6/uL (3.5-5.4); RED CELL DISTRIBUTION WIDTH 15.3 % (11.6-16.5); WHITE BLOOD COUNT 4.6 X10^3/uL (3.6-10.0)
[2018-08-03 06:53] LABS: ALANINE AMINOTRANSFERASE 17 Units/L (12-78); ALBUMIN 2.9 g/dL (3.4-5.0); ALKALINE PHOSPHATASE 61 Units/L (46-116); ASPARTATE AMINO TRANSFERASE 17 Units/L (15-37); BLOOD UREA NITROGEN 28 mg/dL (7-18); CARBON DIOXIDE 33.7 mmol/L (21-32); CHLORIDE 103 mmol/L (98-107); COR CA(FOR HYPOALB) 9.9 mg/dL (8.5-10.1); CREATININE 1.66 mg/dL (0.55-1.02); SODIUM 144 mmol/L (136-145); TOTAL PROTEIN 6.5 g/dL (6.4-8.2); eGFR NON BLACK RACES 34 (>60)
[2018-08-03] MEDS: ROCEPHIN VIAL 1 GRAM IVP SCH (08:24)
[2018-08-03] MEDS: PROzac PO SCH (08:25)
[2018-08-03] MEDS: PROTONIX TAB 40 MG PO SCH (08:25)
[2018-08-03] MEDS: NEURONTIN CAP 300 MG PO SCH (08:25)
[2018-08-03] MEDS: LOPRESSOR TAB 50 MG PO SCH (08:25)
[2018-08-03] MEDS: ZYLOPRIM PO SCH (08:25)
[2018-08-03] MEDS: ASPIRIN EC 81 MG PO SCH (08:25)
[2018-08-03] MEDS: DEPAKOTE ER PO SCH (08:25)
[2018-08-03] MEDS: K-DUR TAB 20 MEQ PO SCH (08:25)
[2018-08-03] MEDS: MYSOLINE PO SCH (08:26)
[2018-08-03] MEDS: NORCO 5/325 MG TAB PO PRN ×2 (08:26→13:29)
--- NOTE | 2018-08-03 09:05 | PCM.PROG ---
Progress Note - Progress Note for Day of Date of Exam: 08/02/18 - Subjective Subjective: WAS ADMITTED FOR CHF EXACERBATION. TODAY, SHE IS ALERT AND ORIENTED, LYING IN BED ON MORNING ROUNDS. SHE CONTINUES WITH A NON-PRODUCTIVE COUGH AND SHORTNESS OF BREATH. SHORTNESS OF BREATH IS WORSE ON EXERTION. ON EXAMINATION, HEART IS REGULAR IN RATE AND RHYTHM. BILATERAL LUNGS ARE NOTED WITH DIMINISHED LUNG SOUNDS THROUGHOUT. ABDOMEN IS ROUND, SOFT, AND NON-TENDER WITH NORMAL BOWEL SOUNDS NOTED IN ALL QUADRANTS. EXTREMITIES ARE NOTED WITH 1+ PITTING EDEMA. HER VITALS THIS MORNING ARE 97.5-84-35-100%NC-131/62. LABS WERE OBTAINED. ABNORMAL LAB VALUES INCLUDE THE FOLLOWING: HGB 11.3, HCT 33.8, BUN 37, CREATININE 1.93, GLUCOSE 36, BNP 137, ALBUMIN 2.9. SHE HAS NOT RECEIVIED ANY INSULIN THROUGHOUT THE NIGHT. A CHEST XRAY WAS OBTAINED THIS MORNING AND REVEALED LUNGS CLEAR. TODAY, WE WILL CONTINUE WITH RESPIRATORY TX, IV ROCEPHIN, AND CURRENT PLAN OF CARE. OTHERWISE, WE WILL FOLLOW UP WITH AM LABS AND CONTINUE TO MONITOR. - Past Medical Family Social History Past Med/Fam/Surg Hx: No changes since H&P Allergies: Allergies No Known Drug Allergies Allergy (Verified 04/05/18 13:05) - Review of Systems ROS: No change since H&P - Vital Signs and I&O's Vital Signs: Temperature 97.8 F Pulse Rate 87 Respiratory Rate 25 Blood Pressure [Right Arm] 154/67 Blood Pressure [Left Arm] 122/58 Blood Pressure 143/70 O2 Sat by Pulse Oximetry 98 Intake and Output: Intake & Output 07/31/18 08/01/18 08/02/18 08/03/18 11:59 11:59 11:59 11:59 Intake Total 870 / 870 1240 / 1240 Balance 870 / 870 1240 / 1240 - Physical Exam Oriented: Normal Eyes: Normal Ear: Normal Nose: Normal Throat: Normal Respiratory: Generalized, Diminished Cardiovascular: Edema. negative: S3, S4, Murmur : Normal Auscultation: Bowel Sounds: Normal Palpation: Normal Tenderness: Normal Skin: Normal Musculoskeletal: Normal Psychiatric: Normal Mood Description: Calm Affect: Normal Speech Pattern: Clear, Appropriate - Laboratory and Diagnostics Result Diagrams: 08/03/18 05:46 08/03/18 05:46 Labs: Laboratory WBC 4.6 X10^3/uL (3.6-10.0) 08/03/18 05:46 RBC 3.64 X10^6/uL (3.5-5.4) 08/03/18 05:46 Hgb 10.9 g/dL (12.0-16.0) L 08/03/18 05:46 Hct 32.2 % (36.0-47.0) L 08/03/18 05:46 MCV 88.6 fL (80.0-100.0) 08/03/18 05:46 MCH 29.9 pg (27.0-34.0) 08/03/18 05:46 MCHC 33.8 g/dL (33.0-35.0) 08/03/18 05:46 RDW 15.3 % (11.6-16.5) 08/03/18 05:46 Plt Count 222 X10^3/uL (150.0-450.0) 08/03/18 05:46 MPV 8.2 fL (7.4-11.0) 08/03/18 05:46 Neut % (Auto) 35.3 % (42.0-75.0) L 08/03/18 05:46 Lymph % (Auto) 49.5 % (21.0-51.0) 08/03/18 05:46 [place] % (Auto) 8.9 % (0.0-13.0) 08/03/18 05:46 Eos % (Auto) 5.2 % (0.9-2.9) H 08/03/18 05:46 Baso % (Auto) 1.1 % (0.2-1.0) H 08/03/18 05:46 Neut # (Auto) 1.6 x10^3/uL (2.2-4.8) L 08/03/18 05:46 Lymph # (Auto) 2.3 X10^3/uL (1.3-2.9) 08/03/18 05:46 [place] # (Auto) 0.4 x10^3/uL (0.3-0.8) 08/03/18 05:46 Eos # (Auto) 0.2 x10^3/uL (0.0-0.2) 08/03/18 05:46 Baso # (Auto) 0.0 X10^3/uL (0.0-0.1) 08/03/18 05:46 Absolute Nucleated RBC 0.4 /100WBC 08/03/18 05:46 Sodium 144 mmol/L (136-145) 08/03/18 05:46 Corrected Sodium TNP 08/03/18 05:46 Potassium 4.2 mmol/L (3.5-5.1) 08/03/18 05:46 Chloride 103 mmol/L (98-107) 08/03/18 05:46 Carbon Dioxide 33.7 mmol/L (21-32) H 08/03/18 05:46 BUN 28 mg/dL (7-18) H 08/03/18 05:46 Creatinine 1.66 mg/dL (0.55-1.02) H 08/03/18 05:46 Est GFR (MDRD) Af Amer 41 (>60) L 08/03/18 05:46 Est GFR (MDRD) Non-Af 34 (>60) L 08/03/18 05:46 Glucose 109 mg/dL (65-99) H 08/03/18 05:46 POC Glucose (mg/dL) 109 mg/dL (65-99) H 08/03/18 05:42 Calcium 9.0 mg/dL (8.5-10.1) 08/03/18 05:46 Corrected Calcium 9.9 mg/dL (8.5-10.1) 08/03/18 05:46 Total Bilirubin 0.20 mg/dL (0.2-1.0) 08/03/18 05:46 AST 17 Units/L (15-37) 08/03/18 05:46 ALT 17 Units/L (12-78) 08/03/18 05:46 Alkaline Phosphatase 61 Units/L (46-116) 08/03/18 05:46 Ammonia 41 umol/L (11-32) H 08/02/18 10:00 B-Natriuretic Peptide 137 pg/mL (0-79) H 08/02/18 05:15 Total Protein 6.5 g/dL (6.4-8.2) 08/03/18 05:46 Albumin 2.9 g/dL (3.4-5.0) L 08/03/18 05:46 Globulin 3.6 g/dL (2.5-4.5) 08/03/18 05:46 Albumin/Globulin Ratio 0.8 Ratio (1.1-2.1) L 08/03/18 05:46 - Plan (1) CHF exacerbation Status: Acute Qualifiers: Heart failure type: unspecified Qualified Code(s): I50.9 - Heart failure, unspecified
[2018-08-03] MEDS: DUONEB 0.5 MG/3 MG NEB SCH ×2 (09:27→12:10)
[2018-08-03 10:17] VITALS: BP 127/60
== END 2018-08-03 14:25 | disposition home or self-care (01) ==
LOC: ICU
PROVIDERS: ADMIT Internal Medicine; ATTEND Internal Medicine
DX: I50.9 Heart failure, unspecified; I13.0 Hypertensive heart and chronic kidney disease with heart failure and stage 1 through stage 4 chronic kidney disease, or unspecified chronic kidney disease; I25.10 Atherosclerotic heart disease of native coronary artery without angina pectoris; N18.3 Chronic kidney disease, stage 3 (moderate); F31.9 Bipolar disorder, unspecified; R94.30 Abnormal result of cardiovascular function study, unspecified; E11.22 Type 2 diabetes mellitus with diabetic chronic kidney disease; E11.65 Type 2 diabetes mellitus with hyperglycemia
CPT/HCPCS: 36415; 71010; 71045; 80053; 82140; 83880; 85025; 93005; 94640; 96367; 96374; A4222; G0378; J0696; J1940; J3490; J7030; J7620

== ENCOUNTER 2019-07-04 13:29 | Observation (INO) ==
[2019-07-04 16:20] LABS: BILIRUBIN,URINE NEGATIVE (NEGATIVE); BLOOD/HEMOGLOBIN,URINE 1+ (NEGATIVE); GLUCOSE, URINE NEGATIVE (NEGATIVE); KETONES,URINE NEGATIVE (NEGATIVE); LEUKOCYTE ESTERASE ,URINE NEGATIVE (NEGATIVE); NITRITES,URINE NEGATIVE (NEGATIVE); PROTEIN,URINE 1+ (NEGATIVE); UROBILINOGEN,URINE NORMAL (NORMAL)
[2019-07-04] MEDS ORDERED: BACTROBAN CREAM ONE (16:35)
[2019-07-04 16:39] LABS: APPEARANCE,URINE CLEAR (CLEAR); BACTERIA,URINE NEGATIVE /HPF (NEGATIVE); COLOR,URINE YELLOW (YELLOW); RBC,URINE 0-2 /HPF (0-3); SQUAMOUS EPITHELIAL CELL,UR FEW /HPF (NEGATIVE)
[2019-07-04] MEDS ORDERED: PROVENTIL NEB TX 0.083% 2.5MG/ 3ML NEB PRN (16:53)
[2019-07-04 17:01] VITALS: BMI 29.2
[2019-07-04] MEDS ORDERED: AFLURIA II4 or FLUARIX II4 IM ONE (17:01)
[2019-07-04] MEDS ORDERED: PREVNAR 13 IM ONE (17:01)
[2019-07-04 17:29] LABS: BASOPHILS % (AUTO) 0.2 % (0.2-1.0); EOSINOPHILS % (AUTO) 0.2 % (0.9-2.9); HEMATOCRIT 34.1 % (36.0-47.0); HEMOGLOBIN 11.3 g/dL (12.0-16.0); LYMPHOCYTES # (AUTO) 0.8 X10^3/uL (1.3-2.9); MEAN CORPUSCULAR HEMOGLOBIN 31.6 pg (27.0-34.0); MEAN CORPUSCULAR HGB CONC 33.2 g/dL (33.0-35.0); MEAN CORPUSCULAR VOLUME 95.2 fL (80.0-100.0); MEAN PLATELET VOLUME 7.9 fL (7.4-11.0); MONOCYTES # (AUTO) 0.3 x10^3/uL (0.3-0.8); NEUTROPHILS # (AUTO) 3.2 x10^3/uL (2.2-4.8); NEUTROPHILS % (AUTO) 73.6 % (42.0-75.0); PLATELET COUNT 230 X10^3/uL (150.0-450.0); RED BLOOD COUNT 3.58 X10^6/uL (3.5-5.4); WHITE BLOOD COUNT 4.4 X10^3/uL (3.6-10.0)
[2019-07-04 17:38] LABS: ALANINE AMINOTRANSFERASE 12 Units/L (12-78); ALBUMIN 2.4 g/dL (3.4-5.0); ALKALINE PHOSPHATASE 82 Units/L (46-116); ASPARTATE AMINO TRANSFERASE 14 Units/L (15-37); BLOOD UREA NITROGEN 62 mg/dL (7-18); CALCIUM 7.9 mg/dL (8.5-10.1); CARBON DIOXIDE 29.6 mmol/L (21-32); CHLORIDE 104 mmol/L (98-107); COR CA(FOR HYPOALB) 9.2 mg/dL (8.5-10.1); CREATININE 2.35 mg/dL (0.55-1.02); SODIUM 144 mmol/L (136-145); TOTAL PROTEIN 6.2 g/dL (6.4-8.2); eGFR NON BLACK RACES 23 (>60)
[2019-07-04] MEDS: BACTROBAN CREAM TOP SCH (18:05)
[2019-07-04] MEDS: PULMICORT NEB TX 0.5 MG NEB SCH (20:20)
[2019-07-04] MEDS: PROVENTIL NEB TX 0.083% 2.5MG/ 3ML NEB SCH (20:20)
[2019-07-04] MEDS: LASIX IVP SCH (20:46)
[2019-07-04] MEDS: NORCO 5/325 MG TAB PO PRN (20:47)
--- NOTE | 2019-07-04 22:06 | RAD ---
HISTORYSOB, EDEMA, RENAL FAILURESTUDYCHEST, 1 VIEWCOMPARISONAugust 2018FINDINGSThe patient is rotated. The cardiac silhouette is unremarkable . The lungs are relatively clear without focal infiltrate or effusion.IMPRESSIONNo acute cardiopulmonary disease.Electronically signed by: SARA TORRES (Jul 04, 2019 22:04:59)
[2019-07-05] MEDS: ULTRAM PO PRN (01:22)
[2019-07-05] MEDS: NORCO 5/325 MG TAB PO PRN ×2 (05:42→15:39)
[2019-07-05 06:37] LABS: BASOPHILS % (AUTO) 0.5 % (0.2-1.0); HEMATOCRIT 33.3 % (36.0-47.0); HEMOGLOBIN 11.1 g/dL (12.0-16.0); LYMPHOCYTES # (AUTO) 1.8 X10^3/uL (1.3-2.9); MEAN CORPUSCULAR HEMOGLOBIN 31.8 pg (27.0-34.0); MEAN CORPUSCULAR HGB CONC 33.3 g/dL (33.0-35.0); MEAN CORPUSCULAR VOLUME 95.6 fL (80.0-100.0); MONOCYTES # (AUTO) 0.5 x10^3/uL (0.3-0.8); MONOCYTES % (AUTO) 11.1 % (0.0-13.0); NEUTROPHILS # (AUTO) 2.3 x10^3/uL (2.2-4.8); NEUTROPHILS % (AUTO) 49.4 % (42.0-75.0); PLATELET COUNT 214 X10^3/uL (150.0-450.0); RED BLOOD COUNT 3.48 X10^6/uL (3.5-5.4); RED CELL DISTRIBUTION WIDTH 16.1 % (11.6-16.5); WHITE BLOOD COUNT 4.7 X10^3/uL (3.6-10.0)
[2019-07-05 06:49] LABS: ALANINE AMINOTRANSFERASE 11 Units/L (12-78); ALBUMIN 2.3 g/dL (3.4-5.0); ALKALINE PHOSPHATASE 76 Units/L (46-116); ASPARTATE AMINO TRANSFERASE 14 Units/L (15-37); BLOOD UREA NITROGEN 59 mg/dL (7-18); CHLORIDE 103 mmol/L (98-107); COR CA(FOR HYPOALB) 9.4 mg/dL (8.5-10.1); CREATININE 2.18 mg/dL (0.55-1.02); SODIUM 141 mmol/L (136-145); TOTAL PROTEIN 5.9 g/dL (6.4-8.2); eGFR NON BLACK RACES 25 (>60)
[2019-07-05] MEDS: PULMICORT NEB TX 0.5 MG NEB SCH ×2 (08:39→20:14)
[2019-07-05] MEDS: PROVENTIL NEB TX 0.083% 2.5MG/ 3ML NEB SCH ×2 (08:39→20:14)
[2019-07-05] MEDS: BACTROBAN CREAM TOP SCH (10:14)
[2019-07-05] MEDS: LASIX IVP SCH (10:17)
[2019-07-05] MEDS: LOPRESSOR TAB 50 MG PO SCH (10:17)
[2019-07-05] MEDS: ASPIRIN EC 81 MG PO SCH (10:42)
[2019-07-05] MEDS: PROTONIX TAB 40 MG PO SCH (10:43)
[2019-07-05] MEDS: MICRO K EXTEN CAP 10 MEQ PO SCH (10:43)
[2019-07-05] MEDS: DEPAKOTE D.R. TAB PO SCH ×2 (10:43→20:20)
[2019-07-05] MEDS: ZYLOPRIM PO SCH (10:43)
[2019-07-05] MEDS: MYSOLINE PO SCH ×2 (10:44→20:21)
[2019-07-05] MEDS: NEURONTIN TAB 600 MG PO SCH ×2 (10:44→20:36)
[2019-07-05] MEDS: PROzac PO SCH (10:44)
[2019-07-05] MEDS: SYNTHROID 88 mcg TAB PO SCH (10:44)
[2019-07-05] MEDS: LASIX PO SCH (10:45)
[2019-07-05] MEDS ORDERED: INSULIN DEGLUDEC 15 UNIT SUBCUT SCH (11:30)
[2019-07-05] MEDS: LOVENOX INJ 30 MG SYR SC SCH (11:54)
--- NOTE | 2019-07-05 16:00 | DR.UPDATE ---
H&P Update History and Physical Update: History and Physical reviewed and patient examined. Changes noted: Yes with the following: WAS SEEN IN THE OFFICE YESTERDAY FOR PERSISTENT SHORTNESS OF BREATH, LOWER EXTREMITY EDEMA, COUGH, WEAKNESS, AND FREQUENT FALLS. SHE REPORTS THAT SHORTNESS OF BREATH IS WORSE ON EXERTION. SHE ALSO REPORTS LOWER BACK PAIN. SHE HAS BEEN TAKING LASIX 20MG PO DAILY AT HOME AND CUTTING BACK ON SALT AND FLUID INTAKE, BUT DENIES IMPROVEMENT IN SYMPTOMS. SHE CURRENTLY HAS A HALF-WAY PRECERT PENDING FOR [employer] IN [place], [place]. WE ADMITTED PATIENT FOR FURTHER EVALUATION AND TREATMENT OF CHF EXACERBATION, SOB, LOWER EXTREMITY EDEMA, RENAL INSUFFICIENCY, AND FREQUENT FALLS. ON ADMISSION, VITALS WERE 97.6-84-20-99%-127/78. LABS WERE OBTAINED. ABNORMAL LAB VALUES INCLUDE THE FOLLOWING: HGB 11.3, HCT 34.1, BUN 62, CREATININE 2.35, CALCIUM 7.9, AST 14, TOTAL PROTEIN 6.2, ALBUMIN 2.4. CHEST XRAY REVEALED: NO ACUTE CARDIOPULMONARY DISEASE. SHE IS NOTED WITH SCATTERED WHEEZING. THERE IS AN OPEN WOUND, [id number] TO THE LEFT LOWER LEG. SCATTERED BRUISING NOTED. SHE WAS STARTED ON LASIX 40MG IV X 2 DOSES, RESPIRATORY TX, SUPPLEMENTAL OXYGEN, AND HOME MEDICATIONS WERE RESUMED. WE WILL CONTINUE WITH CURRENT PLAN OF CARE TODAY AND ADD LOVENOX 30MG SC DAILY. OTHERWISE, WE WILL FOLLOW UP WITH AM LABS AND CONTINUE TO MONITOR. Prescription drug monitoring program results: PDMP reviewed and no concerns identified H&P Reviewed: Yes Patient was examined?: Yes
[2019-07-05] MEDS: NS 1000 ML 1,000 ML IV SCH (17:16)
[2019-07-05] MEDS ORDERED: NS 1000 ML 1,000 ML ONE (17:18)
[2019-07-05] MEDS ORDERED: PREVNAR 13 IM ONE (20:04)
[2019-07-06] MEDS: NORCO 5/325 MG TAB PO PRN ×3 (01:04→20:24)
[2019-07-06 06:45] LABS: CALCIUM 7.6 mg/dL (8.5-10.1); COR CA(FOR HYPOALB) 9.2 mg/dL (8.5-10.1); CREATININE 1.59 mg/dL (0.55-1.02); TOTAL PROTEIN 5.2 g/dL (6.4-8.2)
[2019-07-06 07:13] LABS: BASOPHILS % (AUTO) 0.5 % (0.2-1.0); EOSINOPHILS # (AUTO) 0.1 x10^3/uL (0.0-0.2); EOSINOPHILS % (AUTO) 1.8 % (0.9-2.9); HEMATOCRIT 27.3 % (36.0-47.0); HEMOGLOBIN 9.2 g/dL (12.0-16.0); LYMPHOCYTES # (AUTO) 1.8 X10^3/uL (1.3-2.9); LYMPHOCYTES % (AUTO) 44.4 % (21.0-51.0); MEAN CORPUSCULAR HEMOGLOBIN 32.3 pg (27.0-34.0); MEAN CORPUSCULAR HGB CONC 33.9 g/dL (33.0-35.0); MEAN CORPUSCULAR VOLUME 95.5 fL (80.0-100.0); MEAN PLATELET VOLUME 7.8 fL (7.4-11.0); MONOCYTES # (AUTO) 0.4 x10^3/uL (0.3-0.8); MONOCYTES % (AUTO) 10.8 % (0.0-13.0); NEUTROPHILS # (AUTO) 1.8 x10^3/uL (2.2-4.8); NEUTROPHILS % (AUTO) 42.5 % (42.0-75.0); PLATELET COUNT 185 X10^3/uL (150.0-450.0); RED BLOOD COUNT 2.85 X10^6/uL (3.5-5.4); RED CELL DISTRIBUTION WIDTH 15.9 % (11.6-16.5); WHITE BLOOD COUNT 4.1 X10^3/uL (3.6-10.0)
[2019-07-06] MEDS: NS 1000 ML 1,000 ML IV SCH ×3 (07:40→21:12)
[2019-07-06] MEDS: PULMICORT NEB TX 0.5 MG NEB SCH ×2 (08:31→20:40)
[2019-07-06] MEDS: PROVENTIL NEB TX 0.083% 2.5MG/ 3ML NEB SCH ×2 (08:31→20:40)
[2019-07-06] MEDS: LOVENOX INJ 30 MG SYR SC SCH (08:35)
[2019-07-06] MEDS: ZYLOPRIM PO SCH (08:36)
[2019-07-06] MEDS: PROzac PO SCH (08:36)
[2019-07-06] MEDS: DEPAKOTE D.R. TAB PO SCH ×2 (08:36→20:21)
[2019-07-06] MEDS: NEURONTIN TAB 600 MG PO SCH ×2 (08:37→20:23)
[2019-07-06] MEDS: PROTONIX TAB 40 MG PO SCH (08:37)
[2019-07-06] MEDS: MICRO K EXTEN CAP 10 MEQ PO SCH (08:37)
[2019-07-06] MEDS: ASPIRIN EC 81 MG PO SCH (08:38)
[2019-07-06] MEDS: MYSOLINE PO SCH ×2 (08:39→20:25)
[2019-07-06] MEDS: LASIX PO SCH ×3 (08:39→20:23)
[2019-07-06] MEDS: SYNTHROID 88 mcg TAB PO SCH (08:39)
[2019-07-06] MEDS: LOPRESSOR TAB 50 MG PO SCH (08:39)
[2019-07-06] MEDS: BACTROBAN CREAM TOP SCH (08:42)
[2019-07-06] MEDS: ULTRAM PO PRN ×2 (10:30→15:58)
[2019-07-06] MEDS ORDERED: AFLURIA II4 or FLUARIX II4 IM ONE (15:11)
[2019-07-07] MEDS: ULTRAM PO PRN ×3 (00:10→21:44)
[2019-07-07 06:13] LABS: BASOPHILS % (AUTO) 0.8 % (0.2-1.0); EOSINOPHILS # (AUTO) 0.1 x10^3/uL (0.0-0.2); EOSINOPHILS % (AUTO) 1.5 % (0.9-2.9); HEMATOCRIT 26.8 % (36.0-47.0); HEMOGLOBIN 9.2 g/dL (12.0-16.0); LYMPHOCYTES # (AUTO) 1.6 X10^3/uL (1.3-2.9); LYMPHOCYTES % (AUTO) 35.5 % (21.0-51.0); MEAN CORPUSCULAR HEMOGLOBIN 32.6 pg (27.0-34.0); MEAN CORPUSCULAR HGB CONC 34.3 g/dL (33.0-35.0); MONOCYTES # (AUTO) 0.5 x10^3/uL (0.3-0.8); MONOCYTES % (AUTO) 10.9 % (0.0-13.0); NEUTROPHILS # (AUTO) 2.4 x10^3/uL (2.2-4.8); NEUTROPHILS % (AUTO) 51.3 % (42.0-75.0); PLATELET COUNT 165 X10^3/uL (150.0-450.0); RED BLOOD COUNT 2.83 X10^6/uL (3.5-5.4); RED CELL DISTRIBUTION WIDTH 15.9 % (11.6-16.5); WHITE BLOOD COUNT 4.6 X10^3/uL (3.6-10.0)
[2019-07-07 06:39] LABS: ALANINE AMINOTRANSFERASE 12 Units/L (12-78); ALBUMIN 2.1 g/dL (3.4-5.0); ALKALINE PHOSPHATASE 70 Units/L (46-116); ASPARTATE AMINO TRANSFERASE 11 Units/L (15-37); BLOOD UREA NITROGEN 28 mg/dL (7-18); CHLORIDE 106 mmol/L (98-107); COR CA(FOR HYPOALB) 9.5 mg/dL (8.5-10.1); CREATININE 1.42 mg/dL (0.55-1.02); SODIUM 141 mmol/L (136-145); TOTAL PROTEIN 5.6 g/dL (6.4-8.2); eGFR NON BLACK RACES 40 (>60)
[2019-07-07] MEDS: NORCO 5/325 MG TAB PO PRN ×2 (08:00→17:55)
[2019-07-07] MEDS: MICRO K EXTEN CAP 10 MEQ PO SCH (08:01)
[2019-07-07] MEDS: ASPIRIN EC 81 MG PO SCH (08:01)
[2019-07-07] MEDS: SYNTHROID 88 mcg TAB PO SCH (08:01)
[2019-07-07] MEDS: LOPRESSOR TAB 50 MG PO SCH (08:01)
[2019-07-07] MEDS: NEURONTIN TAB 600 MG PO SCH ×2 (08:01→20:23)
[2019-07-07] MEDS: PROTONIX TAB 40 MG PO SCH (08:01)
[2019-07-07] MEDS: PROzac PO SCH (08:01)
[2019-07-07] MEDS: MYSOLINE PO SCH ×2 (08:02→20:22)
[2019-07-07] MEDS: ZYLOPRIM PO SCH (08:02)
[2019-07-07] MEDS: LOVENOX INJ 30 MG SYR SC SCH (08:03)
[2019-07-07] MEDS: BACTROBAN CREAM TOP SCH (08:03)
[2019-07-07] MEDS: LASIX PO SCH ×2 (08:03→20:22)
[2019-07-07] MEDS: PROVENTIL NEB TX 0.083% 2.5MG/ 3ML NEB SCH ×2 (08:25→21:05)
[2019-07-07] MEDS: PULMICORT NEB TX 0.5 MG NEB SCH ×2 (08:25→21:05)
[2019-07-07] MEDS: DEPAKOTE D.R. TAB PO SCH ×2 (10:02→20:21)
[2019-07-07] MEDS: NS 1000 ML 1,000 ML IV SCH (13:34)
--- NOTE | 2019-07-07 19:11 | PCM.PROG ---
Progress Note - Progress Note for Day of Date of Exam: 07/06/19 - Subjective Subjective: IS BEING TREATED FOR CHF EXACERBATION, SOB, LOWER EXTREMITY EDEMA, RENAL INSUFFICIENCY, AND FREQUENT FALLS. PATIENT REPORTS THAT SHE HAS HAD A DECLINE IN GAIT AND STABILITY AND HAS BEEN FALLING OFTEN. A [facility] PRECERT IS PENDING. TODAY, SHE IS ALERT AND ORIENTED, LYING IN BED ON MORNING ROUNDS. SHE CONTINUES WITH COMPLAINTS OF SHORTNESS OF BREATH AND LOWER EXTREMITY SWELLING TODAY. STAFF REPORTS THAT SHE IS UNSTEADY ON AMBULATION. ON EXAMINATION, HEART IS REGULAR IN RATE AND RHYTHM. BILATERAL LUNGS ARE NOTED WITH DIMINISHED LUNG SOUNDS THROUGHOUT. ABDOMEN IS ROUND, SOFT, AND NON-TENDER. LOWER EXTREMITIES ARE NOTED WITH 1+ PITTING EDEMA TODAY. THERE IS AN OPEN WOUND, [id number] TO THE LEFT LOWER LEG. SCATTERED BRUISING NOTED. HER VITALS THIS MORNING ARE: 97.7-71-20-99%-133/88. LABS WERE OBTAINED. ABNORMAL LAB VALUES INCLUDE THE FOLLOWING: RBC 2.85, HGB 9.2, HCT 27.3, CHLORIDE 108, BUN 43, CREATININE 1.59, GLUCOSE 116, CALCIUM 7.6, AST 11, TOTAL PROTEIN 5.2, ALBUMIN 2 .0. SHE IS CURRENTLY RECEIVING NS AT 50 ML/HR, RESPIRATORY TX, LOVENOX 30MG SC DAILY, LASIX 20MG PO DAILY, AND HOME MEDICATIONS WERE RESUMED. TODAY, WE WILL INCREASE LASIX TO 20MG PO BID. OTHERWISE, WE WILL CONTINUE WITH CURRENT PLAN OF CARE. WE WILL FOLLOW UP WITH AM LABS AND CONTINUE TO MONITOR. - Past Medical Family Social History Past Med/Fam/Surg Hx: No changes since H&P Allergies: Allergies DAIRY PRODUCTS Allergy (Uncoded 12/26/18 14:36) - Review of Systems ROS: No change since H&P - Vital Signs and I&O's Vital Signs: Temperature 98.6 F Pulse Rate [Right Radial] 79 Pulse Rate [Left Brachial] 71 Pulse Rate 75 Respiratory Rate 20 Blood Pressure [Left Calf] 138/63 Blood Pressure [Left Arm] 139/77 Blood Pressure [Right Arm] 115/55 O2 Sat by Pulse Oximetry 98 Intake and Output: Intake & Output 07/05/19 07/06/19 07/07/19 07/08/19 11:59 11:59 11:59 11:59 Intake Total 510 / 510 1800 / 1800 2641 / 2641 1240 / 1240 Output Total 300 / 300 Balance 210 / 210 1799 / 1800 2641 / 2641 1240 / 1240 - Physical Exam Oriented: Normal Eyes: Normal Ear: Normal Nose: Normal Throat: Normal Respiratory: Generalized, Diminished Cardiovascular: Edema (1+ PITTING EDEMA BILATERAL LOWER EXTREMITIES) : Normal Auscultation: Bowel Sounds: Normal Palpation: Normal Tenderness: Normal Skin: Normal Musculoskeletal: Normal Psychiatric: Normal Mood Description: Calm Affect: Normal Speech Pattern: Clear, Appropriate - Laboratory and Diagnostics Result Diagrams: 07/07/19 05:08 07/07/19 05:08 Labs: 07/04/19 16:35 Leg - Left Gram Stain - Final 07/04/19 16:35 Leg - Left Wound Culture - Preliminary Laboratory WBC 4.6 X10^3/uL (3.6-10.0) 07/07/19 05:08 RBC 2.83 X10^6/uL (3.5-5.4) L 07/07/19 05:08 Hgb 9.2 g/dL (12.0-16.0) L 07/07/19 05:08 Hct 26.8 % (36.0-47.0) L 07/07/19 05:08 MCV 95.0 fL (80.0-100.0) 07/07/19 05:08 MCH 32.6 pg (27.0-34.0) 07/07/19 05:08 MCHC 34.3 g/dL (33.0-35.0) 07/07/19 05:08 RDW 15.9 % (11.6-16.5) 07/07/19 05:08 Plt Count 165 X10^3/uL (150.0-450.0) 07/07/19 05:08 MPV 8.0 fL (7.4-11.0) 07/07/19 05:08 Neut % (Auto) 51.3 % (42.0-75.0) 07/07/19 05:08 Lymph % (Auto) 35.5 % (21.0-51.0) 07/07/19 05:08 [place] % (Auto) 10.9 % (0.0-13.0) 07/07/19 05:08 Eos % (Auto) 1.5 % (0.9-2.9) 07/07/19 05:08 Baso % (Auto) 0.8 % (0.2-1.0) 07/07/19 05:08 Neut # (Auto) 2.4 x10^3/uL (2.2-4.8) 07/07/19 05:08 Lymph # (Auto) 1.6 X10^3/uL (1.3-2.9) 07/07/19 05:08 [place] # (Auto) 0.5 x10^3/uL (0.3-0.8) 07/07/19 05:08 Eos # (Auto) 0.1 x10^3/uL (0.0-0.2) 07/07/19 05:08 Baso # (Auto) 0.0 X10^3/uL (0.0-0.1) 07/07/19 05:08 Absolute Nucleated RBC 0.1 /100WBC 07/07/19 05:08 Sodium 141 mmol/L (136-145) 07/07/19 05:08 Corrected Sodium TNP 07/07/19 05:08 Potassium 4.0 mmol/L (3.5-5.1) 07/07/19 05:08 Chloride 106 mmol/L (98-107) 07/07/19 05:08 Carbon Dioxide 31.0 mmol/L (21-32) 07/07/19 05:08 BUN 28 mg/dL (7-18) H 07/07/19 05:08 Creatinine 1.42 mg/dL (0.55-1.02) H 07/07/19 05:08 Est GFR (MDRD) Af Amer 49 (>60) L 07/07/19 05:08 Est GFR (MDRD) Non-Af 40 (>60) L 07/07/19 05:08 Glucose 107 mg/dL (65-99) H 07/07/19 05:08 POC Glucose (mg/dL) 198 mg/dL (65-99) H 07/07/19 16:31 Calcium 8.0 mg/dL (8.5-10.1) L 07/07/19 05:08 Corrected Calcium 9.5 mg/dL (8.5-10.1) 07/07/19 05:08 Total Bilirubin 0.20 mg/dL (0.2-1.0) 07/07/19 05:08 AST 11 Units/L (15-37) L 07/07/19 05:08 ALT 12 Units/L (12-78) 07/07/19 05:08 Alkaline Phosphatase 70 Units/L (46-116) 07/07/19 05:08 B-Natriuretic Peptide 93.8 pg/mL (0-79) H 07/05/19 06:12 Total Protein 5.6 g/dL (6.4-8.2) L 07/07/19 05:08 Albumin 2.1 g/dL (3.4-5.0) L 07/07/19 05:08 Globulin 3.5 g/dL (2.5-4.5) 07/07/19 05:08 Albumin/Globulin Ratio 0.6 Ratio (1.1-2.1) L 07/07/19 05:08 Specimen Type Clean catch urine 07/04/19 16:09 Urine Color Yellow (YELLOW) 07/04/19 16:09 Urine Appearance Clear (CLEAR) 07/04/19 16:09 Urine pH 6.0 (5.0 - 8.0) 07/04/19 16:09 Ur Specific [place] 1.015 (1.000-1.030) 07/04/19 16:09 Urine Protein 1+ (NEGATIVE) 07/04/19 16:09 Urine Glucose (UA) Negative (NEGATIVE) 07/04/19 16:09 Urine Ketones Negative (NEGATIVE) 07/04/19 16:09 Urine Occult Blood 1+ (NEGATIVE) 07/04/19 16:09 Urine Nitrite Negative (NEGATIVE) 07/04/19 16:09 Urine Bilirubin Negative (NEGATIVE) 07/04/19 16:09 Urine Urobilinogen Normal (NORMAL) 07/04/19 16:09 Ur Leukocyte Esterase Negative (NEGATIVE) 07/04/19 16:09 Urine RBC 0-2 /HPF (0-3) 07/04/19 16:09 Urine WBC 3-5 /HPF (0-5) 07/04/19 16:09 Ur Squamous Epith Cells Few /HPF (NEGATIVE) 07/04/19 16:09 Urine Bacteria Negative /HPF (NEGATIVE) 07/04/19 16:09 Ur Culture Indicated? No/not indicated 07/04/19 16:09 - Plan (1) CHF exacerbation Status: Acute Qualifiers: Heart failure type: unspecified Plan: LASIX 20MG PO BID, SUPPLEMENTAL OXYGEN, CONTINUE TO MONITOR (2) Dyspnea Status: Acute Qualifiers: Dyspnea type: shortness of breath Qualified Code(s): R06.02 - Shortness of breath; R06.00 - Dyspnea, unspecified; R06.01 - Orthopnea (3) Renal insufficiency Status: Acute Plan: NORMAL SALINE AT 50 ML/HR, CONTINUE TO MONITOR (4) Falls frequently Status: Acute (5) Chronic back pain Status: Acute Qualifiers: Back pain location: low back pain Back pain laterality: unspecified Sciatica presence: without sciatica Qualified Code(s): M54.5 - Low back pain; G89.29 - Other chronic pain
[2019-07-08] MEDS: NS 1000 ML 1,000 ML IV SCH ×2 (02:22→15:25)
[2019-07-08] MEDS: NORCO 5/325 MG TAB PO PRN ×3 (03:56→18:35)
[2019-07-08 06:59] LABS: BASOPHILS % (AUTO) 0.6 % (0.2-1.0); EOSINOPHILS # (AUTO) 0.1 x10^3/uL (0.0-0.2); EOSINOPHILS % (AUTO) 2.2 % (0.9-2.9); HEMATOCRIT 27.4 % (36.0-47.0); HEMOGLOBIN 9.4 g/dL (12.0-16.0); LYMPHOCYTES # (AUTO) 1.5 X10^3/uL (1.3-2.9); LYMPHOCYTES % (AUTO) 38.4 % (21.0-51.0); MEAN CORPUSCULAR HEMOGLOBIN 32.6 pg (27.0-34.0); MEAN CORPUSCULAR HGB CONC 34.4 g/dL (33.0-35.0); MEAN CORPUSCULAR VOLUME 94.8 fL (80.0-100.0); MEAN PLATELET VOLUME 7.6 fL (7.4-11.0); MONOCYTES # (AUTO) 0.4 x10^3/uL (0.3-0.8); MONOCYTES % (AUTO) 10.8 % (0.0-13.0); NEUTROPHILS # (AUTO) 1.9 x10^3/uL (2.2-4.8); PLATELET COUNT 151 X10^3/uL (150.0-450.0); RED BLOOD COUNT 2.89 X10^6/uL (3.5-5.4); RED CELL DISTRIBUTION WIDTH 15.4 % (11.6-16.5)
[2019-07-08 07:14] LABS: ALBUMIN 2.1 g/dL (3.4-5.0); CALCIUM 8.1 mg/dL (8.5-10.1); COR CA(FOR HYPOALB) 9.6 mg/dL (8.5-10.1); CREATININE 1.34 mg/dL (0.55-1.02); TOTAL PROTEIN 5.7 g/dL (6.4-8.2)
--- NOTE | 2019-07-08 07:43 | RAD ---
HISTORYCOUGH, CONGESTION, SOBSTUDYPortable AP chestCOMPARISONFebruary 2019FINDINGSThe lungs remain clear and the heart and mediastinum are unremarkable. There is no edema or effusion. There is a comminuted fracture of the head and neck of the right humerus as before.IMPRESSIONNo evidence for acute cardiopulmonary diseaseElectronically signed by: ANNE SEARS (Jul 08, 2019 07:42:14)
[2019-07-08] MEDS: PULMICORT NEB TX 0.5 MG NEB SCH ×2 (08:29→20:00)
[2019-07-08] MEDS: PROVENTIL NEB TX 0.083% 2.5MG/ 3ML NEB SCH ×2 (08:29→20:00)
[2019-07-08] MEDS: MICRO K EXTEN CAP 10 MEQ PO SCH (08:37)
[2019-07-08] MEDS: SYNTHROID 88 mcg TAB PO SCH (08:37)
[2019-07-08] MEDS: ASPIRIN EC 81 MG PO SCH (08:37)
[2019-07-08] MEDS: LOPRESSOR TAB 50 MG PO SCH (08:37)
[2019-07-08] MEDS: DEPAKOTE D.R. TAB PO SCH ×2 (08:37→20:27)
[2019-07-08] MEDS: PROTONIX TAB 40 MG PO SCH (08:37)
[2019-07-08] MEDS: PROzac PO SCH (08:38)
[2019-07-08] MEDS: BACTROBAN CREAM TOP SCH (08:38)
[2019-07-08] MEDS: NEURONTIN TAB 600 MG PO SCH ×2 (08:38→20:27)
[2019-07-08] MEDS: ZYLOPRIM PO SCH (08:38)
[2019-07-08] MEDS: LOVENOX INJ 30 MG SYR SC SCH (08:38)
[2019-07-08] MEDS: LASIX PO SCH ×2 (08:38→20:27)
[2019-07-08] MEDS: MYSOLINE PO SCH ×2 (08:39→20:50)
--- NOTE | 2019-07-08 21:30 | PCM.PROG ---
Progress Note - Progress Note for Day of Date of Exam: 07/07/19 - Subjective Subjective: IS BEING TREATED FOR CHF EXACERBATION, SOB, LOWER EXTREMITY EDEMA, RENAL INSUFFICIENCY, AND FREQUENT FALLS. PATIENT REPORTS THAT SHE HAS HAD A DECLINE IN GAIT AND STABILITY AND HAS BEEN FALLING OFTEN. A [employer] PRECERT IS PENDING. TODAY, SHE IS ALERT AND ORIENTED, LYING IN BED ON MORNING ROUNDS. SHE CONTINUES WITH COMPLAINTS OF SHORTNESS OF BREATH AND LOWER EXTREMITY SWELLING TODAY. STAFF REPORTS THAT SHE IS UNSTEADY ON AMBULATION. ON EXAMINATION, HEART IS REGULAR IN RATE AND RHYTHM. BILATERAL LUNGS ARE NOTED WITH DIMINISHED LUNG SOUNDS THROUGHOUT. ABDOMEN IS ROUND, SOFT, AND NON-TENDER. LOWER EXTREMITIES ARE NOTED WITH TRACE EDEMA TODAY. THERE IS AN OPEN WOUND, [id number] TO THE LEFT LOWER LEG. SCATTERED BRUISING NOTED. HER VITALS THIS MORNING ARE: 97.9-67-20-97%-167/72. LABS WERE OBTAINED. ABNORMAL LAB VALUES INCLUDE THE FOLLOWING: RBC RC 2.83, HGB 9.2, HCT 26.8, BUN 28, CREATININE 1.42, GLUCOSE 107, CALCIUM 8.0, AST 11, TOTAL PROTEIN 5.6, ALBUMIN 2.1. SHE IS CURRE NTLY RECEIVING NS AT 50 ML/HR, RESPIRATORY TX, LOVENOX 30MG SC DAILY, LASIX 20MG PO BID, AND HOME MEDICATIONS WERE RESUMED. OTHERWISE, WE WILL CONTINUE WITH CURRENT PLAN OF CARE. WE WILL FOLLOW UP WITH AM LABS AND CONTINUE TO MONITOR. - Past Medical Family Social History Past Med/Fam/Surg Hx: No changes since H&P Allergies: Allergies DAIRY PRODUCTS Allergy (Uncoded 12/26/18 14:36) - Review of Systems ROS: No change since H&P - Vital Signs and I&O's Vital Signs: Temperature 98.6 F Pulse Rate [Right Radial] 79 Pulse Rate [Left Brachial] 81 Pulse Rate 80 Respiratory Rate 24 Blood Pressure [Left Calf] 146/67 Blood Pressure [Left Arm] 139/77 Blood Pressure [Right Arm] 115/55 O2 Sat by Pulse Oximetry 96 Intake and Output: Intake & Output 07/06/19 07/07/19 07/08/19 07/09/19 11:59 11:59 11:59 11:59 Intake Total 1800 / 1800 2641 / 2641 2720 / 2720 1240 / 1240 Balance 1800 / 1800 2641 / 2641 2720 / 2720 1240 / 1240 - Physical Exam Oriented: Normal Eyes: Normal Ear: Normal Nose: Normal Throat: Normal Respiratory: Generalized, Diminished Cardiovascular: Edema (1+ PITTING EDEMA BILATERAL LOWER EXTREMITIES) : Normal Auscultation: Bowel Sounds: Normal Tenderness: Normal Skin: Normal Musculoskeletal: Normal Psychiatric: Normal Mood Description: Calm Affect: Normal Speech Pattern: Clear, Appropriate - Laboratory and Diagnostics Result Diagrams: 07/08/19 06:35 07/08/19 06:35 Labs: 07/04/19 16:35 Leg - Left Gram Stain - Final 07/04/19 16:35 Leg - Left Wound Culture - Preliminary Laboratory WBC 4.0 X10^3/uL (3.6-10.0) 07/08/19 06:35 RBC 2.89 X10^6/uL (3.5-5.4) L 07/08/19 06:35 Hgb 9.4 g/dL (12.0-16.0) L 07/08/19 06:35 Hct 27.4 % (36.0-47.0) L 07/08/19 06:35 MCV 94.8 fL (80.0-100.0) 07/08/19 06:35 MCH 32.6 pg (27.0-34.0) 07/08/19 06:35 MCHC 34.4 g/dL (33.0-35.0) 07/08/19 06:35 RDW 15.4 % (11.6-16.5) 07/08/19 06:35 Plt Count 151 X10^3/uL (150.0-450.0) 07/08/19 06:35 MPV 7.6 fL (7.4-11.0) 07/08/19 06:35 Neut % (Auto) 48.0 % (42.0-75.0) 07/08/19 06:35 Lymph % (Auto) 38.4 % (21.0-51.0) 07/08/19 06:35 [place] % (Auto) 10.8 % (0.0-13.0) 07/08/19 06:35 Eos % (Auto) 2.2 % (0.9-2.9) 07/08/19 06:35 Baso % (Auto) 0.6 % (0.2-1.0) 07/08/19 06:35 Neut # (Auto) 1.9 x10^3/uL (2.2-4.8) L 07/08/19 06:35 Lymph # (Auto) 1.5 X10^3/uL (1.3-2.9) 07/08/19 06:35 [place] # (Auto) 0.4 x10^3/uL (0.3-0.8) 07/08/19 06:35 Eos # (Auto) 0.1 x10^3/uL (0.0-0.2) 07/08/19 06:35 Baso # (Auto) 0.0 X10^3/uL (0.0-0.1) 07/08/19 06:35 Absolute Nucleated RBC 0.0 /100WBC 07/08/19 06:35 Sodium 140 mmol/L (136-145) 07/08/19 06:35 Corrected Sodium 140 mmol/L (136-145) 07/08/19 06:35 Potassium 4.1 mmol/L (3.5-5.1) 07/08/19 06:35 Chloride 106 mmol/L (98-107) 07/08/19 06:35 Carbon Dioxide 30.0 mmol/L (21-32) 07/08/19 06:35 BUN 24 mg/dL (7-18) H 07/08/19 06:35 Creatinine 1.34 mg/dL (0.55-1.02) H 07/08/19 06:35 Est GFR (MDRD) Af Amer 52 (>60) L 07/08/19 06:35 Est GFR (MDRD) Non-Af 43 (>60) L 07/08/19 06:35 Glucose 116 mg/dL (65-99) H 07/08/19 06:35 POC Glucose (mg/dL) 230 mg/dL (65-99) H 07/08/19 19:50 Calcium 8.1 mg/dL (8.5-10.1) L 07/08/19 06:35 Corrected Calcium 9.6 mg/dL (8.5-10.1) 07/08/19 06:35 Total Bilirubin 0.20 mg/dL (0.2-1.0) 07/08/19 06:35 AST 12 Units/L (15-37) L 07/08/19 06:35 ALT 13 Units/L (12-78) 07/08/19 06:35 Alkaline Phosphatase 72 Units/L (46-116) 07/08/19 06:35 B-Natriuretic Peptide 93.8 pg/mL (0-79) H 07/05/19 06:12 Total Protein 5.7 g/dL (6.4-8.2) L 07/08/19 06:35 Albumin 2.1 g/dL (3.4-5.0) L 07/08/19 06:35 Globulin 3.6 g/dL (2.5-4.5) 07/08/19 06:35 Albumin/Globulin Ratio 0.6 Ratio (1.1-2.1) L 07/08/19 06:35 Specimen Type Clean catch urine 07/04/19 16:09 Urine Color Yellow (YELLOW) 07/04/19 16:09 Urine Appearance Clear (CLEAR) 07/04/19 16:09 Urine pH 6.0 (5.0 - 8.0) 07/04/19 16:09 Ur Specific [place] 1.015 (1.000-1.030) 07/04/19 16:09 Urine Protein 1+ (NEGATIVE) 07/04/19 16:09 Urine Glucose (UA) Negative (NEGATIVE) 07/04/19 16:09 Urine Ketones Negative (NEGATIVE) 07/04/19 16:09 Urine Occult Blood 1+ (NEGATIVE) 07/04/19 16:09 Urine Nitrite Negative (NEGATIVE) 07/04/19 16:09 Urine Bilirubin Negative (NEGATIVE) 07/04/19 16:09 Urine Urobilinogen Normal (NORMAL) 07/04/19 16:09 Ur Leukocyte Esterase Negative (NEGATIVE) 07/04/19 16:09 Urine RBC 0-2 /HPF (0-3) 07/04/19 16:09 Urine WBC 3-5 /HPF (0-5) 07/04/19 16:09 Ur Squamous Epith Cells Few /HPF (NEGATIVE) 07/04/19 16:09 Urine Bacteria Negative /HPF (NEGATIVE) 07/04/19 16:09 Ur Culture Indicated? No/not indicated 07/04/19 16:09 - Plan (1) CHF exacerbation Status: Acute Qualifiers: Heart failure type: unspecified Plan: LASIX 20MG PO BID, SUPPLEMENTAL OXYGEN, CONTINUE TO MONITOR (2) Dyspnea Status: Acute Qualifiers: Dyspnea type: shortness of breath Qualified Code(s): R06.02 - Shortness of breath; R06.00 - Dyspnea, unspecified; R06.01 - Orthopnea (3) Renal insufficiency Status: Acute Plan: NORMAL SALINE AT 50 ML/HR, CONTINUE TO MONITOR (4) Falls frequently Status: Acute (5) Chronic back pain Status: Acute Qualifiers: Back pain location: low back pain Back pain laterality: unspecified S ciatica presence: without sciatica Qualified Code(s): M54.5 - Low back pain; G89.29 - Other chronic pain
--- NOTE | 2019-07-08 22:30 | PCM.PROG ---
Progress Note - Progress Note for Day of Date of Exam: 07/08/19 - Subjective Subjective: IS BEING TREATED FOR CHF EXACERBATION, SOB, LOWER EXTREMITY EDEMA, RENAL INSUFFICIENCY, AND FREQUENT FALLS. PATIENT REPORTS THAT SHE HAS HAD A DECLINE IN GAIT AND STABILITY AND HAS BEEN FALLING OFTEN. A SENIOR LIVING PRECERT IS PENDING. TODAY, SHE IS ALERT AND ORIENTED, LYING IN BED ON MORNING ROUNDS. SHE CONTINUES WITH COMPLAINTS OF SHORTNESS OF BREATH AND WEAKNESS. STAFF REPORTS THAT SHE IS UNSTEADY ON AMBULATION. ON EXAMINATION, HEART IS REGULAR IN RATE AND RHYTHM. BILATERAL LUNGS ARE NOTED WITH DIMINISHED LUNG SOUNDS THROUGHOUT. ABDOMEN IS ROUND, SOFT, AND NON-TENDER. LOWER EXTREMITIES ARE NOTED WITH TRACE EDEMA TODAY. THERE IS AN OPEN WOUND TO THE LEFT LOWER LEG. SCATTERED BRUISING NOTED. HER VITALS THIS MORNING ARE: 97.9-67-20-97%-167/72. LABS WERE OBTAINED. ABNORMAL LAB VALUES INCLUDE THE FOLLOWING: RBC 2.89, HGB 9.4, HCT 27.4, BUN 24, CREATININE 1.34, GLUCOSE 116, CALCIUM 8.1, AST 12, TOTAL PROTEIN 5.7, ALBUMIN 2.1. SHE IS CURRENTLY RECEIVING NS AT 50 ML/HR, RESPIRATORY TX, LOVENOX 30MG SC DAILY, LASIX 20MG PO BID, AND HOME MEDICATIONS WERE RESUMED. OTHERWISE, WE WILL CONTINUE WITH CURRENT PLAN OF CARE. WE WILL FOLLOW UP WITH AM LABS AND CONTINUE TO MONITOR. - Past Medical Family Social History Past Med/Fam/Surg Hx: No changes since H&P Allergies: Allergies DAIRY PRODUCTS Allergy (Uncoded 12/26/18 14:36) - Review of Systems ROS: No change since H&P - Vital Signs and I&O's Vital Signs: Temperature 98.6 F Pulse Rate [Right Radial] 79 Pulse Rate [Left Brachial] 81 Pulse Rate 79 Respiratory Rate 24 Blood Pressure [Left Calf] 146/67 Blood Pressure [Left Arm] 139/77 Blood Pressure [Right Arm] 115/55 O2 Sat by Pulse Oximetry 96 Intake and Output: Intake & Output 07/06/19 07/07/19 07/08/19 07/09/19 11:59 11:59 11:59 11:59 Intake Total 1800 / 1800 2641 / 2641 2720 / 2720 1240 / 1240 Balance 1800 / 1800 2641 / 2641 2720 / 2720 1240 / 1240 - Physical Exam Oriented: Normal Eyes: Normal Ear: Normal Nose: Normal Throat: Normal Respiratory: Generalized, Diminished Cardiovascular: Edema (1+ PITTING EDEMA BILATERAL LOWER EXTREMITIES) : Normal Auscultation: Bowel Sounds: Normal Palpation: Normal Tenderness: Normal Skin: Normal Musculoskeletal: Normal Psychiatric: Normal Mood Description: Calm Affect: Normal Speech Pattern: Clear, Appropriate - Laboratory and Diagnostics Result Diagrams: 07/08/19 06:35 07/08/19 06:35 Labs: 07/04/19 16:35 Leg - Left Gram Stain - Final 07/04/19 16:35 Leg - Left Wound Culture - Preliminary Laboratory WBC 4.0 X10^3/uL (3.6-10.0) 07/08/19 06:35 RBC 2.89 X10^6/uL (3.5-5.4) L 07/08/19 06:35 Hgb 9.4 g/dL (12.0-16.0) L 07/08/19 06:35 Hct 27.4 % (36.0-47.0) L 07/08/19 06:35 MCV 94.8 fL (80.0-100.0) 07/08/19 06:35 MCH 32.6 pg (27.0-34.0) 07/08/19 06:35 MCHC 34.4 g/dL (33.0-35.0) 07/08/19 06:35 RDW 15.4 % (11.6-16.5) 07/08/19 06:35 Plt Count 151 X10^3/uL (150.0-450.0) 07/08/19 06:35 MPV 7.6 fL (7.4-11.0) 07/08/19 06:35 Neut % (Auto) 48.0 % (42.0-75.0) 07/08/19 06:35 Lymph % (Auto) 38.4 % (21.0-51.0) 07/08/19 06:35 Wise % (Auto) 10.8 % (0.0-13.0) 07/08/19 06:35 Eos % (Auto) 2.2 % (0.9-2.9) 07/08/19 06:35 Baso % (Auto) 0.6 % (0.2-1.0) 07/08/19 06:35 Neut # (Auto) 1.9 x10^3/uL (2.2-4.8) L 07/08/19 06:35 Lymph # (Auto) 1.5 X10^3/uL (1.3-2.9) 07/08/19 06:35 Wise # (Auto) 0.4 x10^3/uL (0.3-0.8) 07/08/19 06:35 Eos # (Auto) 0.1 x10^3/uL (0.0-0.2) 07/08/19 06:35 Baso # (Auto) 0.0 X10^3/uL (0.0-0.1) 07/08/19 06:35 Absolute Nucleated RBC 0.0 /100WBC 07/08/19 06:35 Sodium 140 mmol/L (136-145) 07/08/19 06:35 Corrected Sodium 140 mmol/L (136-145) 07/08/19 06:35 Potassium 4.1 mmol/L (3.5-5.1) 07/08/19 06:35 Chloride 106 mmol/L (98-107) 07/08/19 06:35 Carbon Dioxide 30.0 mmol/L (21-32) 07/08/19 06:35 BUN 24 mg/dL (7-18) H 07/08/19 06:35 Creatinine 1.34 mg/dL (0.55-1.02) H 07/08/19 06:35 Est GFR (MDRD) Af Amer 52 (>60) L 07/08/19 06:35 Est GFR (MDRD) Non-Af 43 (>60) L 07/08/19 06:35 Glucose 116 mg/dL (65-99) H 07/08/19 06:35 POC Glucose (mg/dL) 230 mg/dL (65-99) H 07/08/19 19:50 Calcium 8.1 mg/dL (8.5-10.1) L 07/08/19 06:35 Corrected Calcium 9.6 mg/dL (8.5-10.1) 07/08/19 06:35 Total Bilirubin 0.20 mg/dL (0.2-1.0) 07/08/19 06:35 AST 12 Units/L (15-37) L 07/08/19 06:35 ALT 13 Units/L (12-78) 07/08/19 06:35 Alkaline Phosphatase 72 Units/L (46-116) 07/08/19 06:35 B-Natriuretic Peptide 93.8 pg/mL (0-79) H 07/05/19 06:12 Total Protein 5.7 g/dL (6.4-8.2) L 07/08/19 06:35 Albumin 2.1 g/dL (3.4-5.0) L 07/08/19 06:35 Globulin 3.6 g/dL (2.5-4.5) 07/08/19 06:35 Albumin/Globulin Ratio 0.6 Ratio (1.1-2.1) L 07/08/19 06:35 Specimen Type Clean catch urine 07/04/19 16:09 Urine Color Yellow (YELLOW) 07/04/19 16:09 Urine Appearance Clear (CLEAR) 07/04/19 16:09 Urine pH 6.0 (5.0 - 8.0) 07/04/19 16:09 Ur Specific [place] 1.015 (1.000-1.030) 07/04/19 16:09 Urine Protein 1+ (NEGATIVE) 07/04/19 16:09 Urine Glucose (UA) Negative (NEGATIVE) 07/04/19 16:09 Urine Ketones Negative (NEGATIVE) 07/04/19 16:09 Urine Occult Blood 1+ (NEGATIVE) 07/04/19 16:09 Urine Nitrite Negative (NEGATIVE) 07/04/19 16:09 Urine Bilirubin Negative (NEGATIVE) 07/04/19 16:09 Urine Urobilinogen Normal (NORMAL) 07/04/19 16:09 Ur Leukocyte Esterase Negative (NEGATIVE) 07/04/19 16:09 Urine RBC 0-2 /HPF (0-3) 07/04/19 16:09 Urine WBC 3-5 /HPF (0-5) 07/04/19 16:09 Ur Squamous Epith Cells Few /HPF (NEGATIVE) 07/04/19 16:09 Urine Bacteria Negative /HPF (NEGATIVE) 07/04/19 16:09 Ur Culture Indicated? No/not indicated 07/04/19 16:09 - Plan (1) CHF exacerbation Status: Acute Qualifiers: Heart failure type: unspecified Plan: LASIX 20MG PO BID, SUPPLEMENTAL OXYGEN, CONTINUE TO MONITOR (2) Dyspnea Status: Acute Qualifiers: Dyspnea type: shortness of breath Qualified Code(s): R06.02 - Shortness of breath; R06.00 - Dyspnea, unspecified; R06.01 - Orthopnea (3) Renal insufficiency Status: Acute Plan: NORMAL SALINE AT 50 ML/HR, CONTINUE TO MONITOR (4) Falls frequently Status: Acute (5) Chronic back pain Status: Acute Qualifiers: Back pain location: low back pain Back pain laterality: unspecified Sciatica presence: without sciatica Qualified Code(s): M54.5 - Low back pain; G89.29 - Other chronic pain
[2019-07-09] MEDS: NORCO 5/325 MG TAB PO PRN ×2 (04:25→12:54)
[2019-07-09] MEDS: NS 1000 ML 1,000 ML IV SCH (05:02)
[2019-07-09 06:21] LABS: BASOPHILS % (AUTO) 0.5 % (0.2-1.0); EOSINOPHILS # (AUTO) 0.1 x10^3/uL (0.0-0.2); EOSINOPHILS % (AUTO) 2.9 % (0.9-2.9); HEMATOCRIT 27.1 % (36.0-47.0); HEMOGLOBIN 9.4 g/dL (12.0-16.0); LYMPHOCYTES # (AUTO) 1.4 X10^3/uL (1.3-2.9); LYMPHOCYTES % (AUTO) 41.2 % (21.0-51.0); MEAN CORPUSCULAR HEMOGLOBIN 32.7 pg (27.0-34.0); MEAN CORPUSCULAR HGB CONC 34.5 g/dL (33.0-35.0); MEAN CORPUSCULAR VOLUME 94.7 fL (80.0-100.0); MEAN PLATELET VOLUME 8.2 fL (7.4-11.0); MONOCYTES # (AUTO) 0.4 x10^3/uL (0.3-0.8); MONOCYTES % (AUTO) 10.3 % (0.0-13.0); NEUTROPHILS # (AUTO) 1.6 x10^3/uL (2.2-4.8); NEUTROPHILS % (AUTO) 45.1 % (42.0-75.0); PLATELET COUNT 147 X10^3/uL (150.0-450.0); RED BLOOD COUNT 2.86 X10^6/uL (3.5-5.4); RED CELL DISTRIBUTION WIDTH 15.4 % (11.6-16.5); WHITE BLOOD COUNT 3.5 X10^3/uL (3.6-10.0)
[2019-07-09 06:25] LABS: ALANINE AMINOTRANSFERASE 12 Units/L (12-78); ALBUMIN 2.1 g/dL (3.4-5.0); ALKALINE PHOSPHATASE 74 Units/L (46-116); ASPARTATE AMINO TRANSFERASE 12 Units/L (15-37); BLOOD UREA NITROGEN 21 mg/dL (7-18); CALCIUM 7.9 mg/dL (8.5-10.1); CARBON DIOXIDE 30.4 mmol/L (21-32); CHLORIDE 105 mmol/L (98-107); COR CA(FOR HYPOALB) 9.4 mg/dL (8.5-10.1); CREATININE 1.17 mg/dL (0.55-1.02); SODIUM 141 mmol/L (136-145); TOTAL PROTEIN 5.6 g/dL (6.4-8.2); eGFR NON BLACK RACES 50 (>60)
--- NOTE | 2019-07-09 06:26 | RAD ---
HISTORYShortness of breathSTUDYCHEST, 1 VIEWCOMPARChillicothe [facility] Centeruary 2019FINDINGSThe heart is within normal limits in size. The romana are normal. The lungs are free of acute infiltrates. No pleural effusions are identified. Bony thorax is unremarkable.IMPRESSIONLungs remain clearElectronically signed by: INDERJIT MOY (Jul 09, 2019 06:24:59)
[2019-07-09] MEDS: PROVENTIL NEB TX 0.083% 2.5MG/ 3ML NEB SCH (08:29)
[2019-07-09] MEDS: PULMICORT NEB TX 0.5 MG NEB SCH (08:29)
[2019-07-09] MEDS: SYNTHROID 88 mcg TAB PO SCH (08:35)
[2019-07-09] MEDS: NEURONTIN TAB 600 MG PO SCH (08:35)
[2019-07-09] MEDS: MICRO K EXTEN CAP 10 MEQ PO SCH (08:35)
[2019-07-09] MEDS: DEPAKOTE D.R. TAB PO SCH (08:36)
[2019-07-09] MEDS: MYSOLINE PO SCH (08:37)
[2019-07-09] MEDS: LASIX PO SCH (08:38)
[2019-07-09] MEDS: ZYLOPRIM PO SCH (08:38)
[2019-07-09] MEDS: LOPRESSOR TAB 50 MG PO SCH (08:38)
[2019-07-09] MEDS: ASPIRIN EC 81 MG PO SCH (08:38)
[2019-07-09] MEDS: PROTONIX TAB 40 MG PO SCH (08:38)
[2019-07-09] MEDS: PROzac PO SCH (08:39)
[2019-07-09] MEDS: LOVENOX INJ 30 MG SYR SC SCH (08:44)
[2019-07-09] MEDS: BACTROBAN CREAM TOP SCH (09:54)
[2019-07-09 13:29] VITALS: BP 158/71
== END 2019-07-09 13:15 | disposition home health service (06) ==
LOC: MED/SURG 14:38 → INTOOBSV 14:38
PROVIDERS: ADMIT Internal Medicine; ATTEND Internal Medicine
DX: B95.1 Streptococcus, group B, as the cause of diseases classified elsewhere; I50.89 Other heart failure; E11.65 Type 2 diabetes mellitus with hyperglycemia; R26.89 Other abnormalities of gait and mobility; Z23 Encounter for immunization; R60.0 Localized edema; N28.9 Disorder of kidney and ureter, unspecified; M54.2 Cervicalgia; Z79.899 Other long term (current) drug therapy; R29.6 Repeated falls; S81.802A Unspecified open wound, left lower leg, initial encounter; R06.02 Shortness of breath; X58.XXXA Exposure to other specified factors, initial encounter
CPT/HCPCS: 36415; 71010; 71045; 80053; 81001; 83880; 85025; 87070; 87075; 87077; 87186; 87205; 90670; 90674; 90686; 94640; 94760; 96360; 96361; 96372; 96374; 97112; 97116; 97161; 97166; A4216; A4222; G0378; J1650; J1940; J3490; J7030; J7613; J7626

== ENCOUNTER 2020-10-29 17:32 | Inpatient (IN) ==
[2020-10-29] MEDS ORDERED: DUONEB 0.5 MG/3 MG (3 mL) NEB ONE ×3 (17:34→17:37)
[2020-10-29] MEDS ORDERED: SALINE 0.9% 3 ML NEB TX ONE (17:34)
[2020-10-29] MEDS ORDERED: SOLU-Medrol 125 MG VIAL IVP ONE (17:36)
[2020-10-29 17:48] LABS: ABG BASE EXCESS -6.1 mmol/L (-2.0-2.0)
[2020-10-29 17:49] LABS: ABG ALLEN TEST POS; ABG HCO3 16.9 mmol/L (22-26)
[2020-10-29 17:56] VITALS: BMI 42.3
[2020-10-29 18:03] LABS: BASOPHILS # (AUTO) 0.1 X10^3/uL (0.0-0.1); BASOPHILS % (AUTO) 0.7 % (0.2-1.0); EOSINOPHILS % (AUTO) 0.4 % (0.9-2.9); HEMOGLOBIN 14.7 g/dL (12.0-16.0); LYMPHOCYTES # (AUTO) 2.8 X10^3/uL (1.3-2.9); LYMPHOCYTES % (AUTO) 20.9 % (21.0-51.0); MEAN CORPUSCULAR HEMOGLOBIN 29.8 pg (27.0-34.0); MEAN CORPUSCULAR HGB CONC 33.5 g/dL (33.0-35.0); MEAN CORPUSCULAR VOLUME 89.1 fL (80.0-100.0); MEAN PLATELET VOLUME 9.1 fL (7.4-11.0); MONOCYTES # (AUTO) 0.8 x10^3/uL (0.3-0.8); NEUTROPHILS # (AUTO) 9.8 x10^3/uL (2.2-4.8); PLATELET COUNT 229 X10^3/uL (150.0-450.0); RED BLOOD COUNT 4.94 X10^6/uL (3.5-5.4); RED CELL DISTRIBUTION WIDTH 15.6 % (11.6-16.5); WHITE BLOOD COUNT 13.7 X10^3/uL (3.6-10.0)
[2020-10-29 18:17] LABS: BLOOD UREA NITROGEN 32 mg/dL (7-18); CALCIUM 8.7 mg/dL (8.5-10.1); CARBON DIOXIDE 17.2 mmol/L (21-32); CHLORIDE 101 mmol/L (98-107); COR NA(FOR HYPERGLY) 142 mmol/L (136-145); CREATININE 1.96 mg/dL (0.55-1.02); SODIUM 136 mmol/L (136-145); TROPONIN I < 0.02 ng/mL (0-1.5); eGFR NON BLACK RACES 28 (>60)
--- NOTE | 2020-10-29 18:20 | DR.SOBA ---
HPI Time Seen Time Seen by Provider: 10/29/20 17:34 Primary Care Physician Primary Care Physician: MARICARMEN HARDY HPI Comment HPI Comment: short of breath Complaints Chief Complaint Doctors Comments: Known COPD and CHF Increasing SOA since yesterday Using albuterol without help Denies fever or sick exposure Worse with reclining and exertion Seen at PCP office, sats in 80's and sent POV not on oxygen Arriving dyspneic and hypoxic in 70's Chief Complaint:: PT STATES SHE FELL LAST WEEK, C/O WEAKNESS, SOB, HAS HX OF CHF Self Treatment fo Chief Complaint: SAW MARICARMEN HARDY IN THE OFFICE AND CAME TO ER TO BE TREATED COVID-19 Coronavirus risk:travel/contact w/high risk person: No Has patient experienced Coronavirus symptoms: No Source History Provided: Patient and Family Member Mode of Arrival Mode of Arrival: Wheelchair Timing Onset of Chief Complaint: 10/29/20 Modifying Factors Worsens:: Exertion and Lying Flat Improves:: Nothing Associated Signs and Symptoms Associated Signs and Symptoms: Cough If Cough Cough: Nonproductive PMH PMH Past Medical History: Yes Past Medical History: Anemia, Anxiety, Asthma, CHF, COPD, CVA, Depression, Diabetes, GERD, Hypertension, Hypothyroidism and Renal Disease Past Surgical History: Yes 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 Family History History of Family Medical Conditions: Yes Family Medical History: Diabetes Mellitus, Coronary Artery Disease, Heart Failure and Hypertension Social History Does any household member use tobacco: No Alcohol Use: None Do you use any recreational Drugs:: No Lives With: Family Lives Where: Home Travel Risk Coronavirus risk:travel/contact w/high risk person: No Has patient experienced Coronavirus symptoms: No Infectious screening In the last 2 months have you had wt loss of >10#?: NO Have you had fever, night sweats or hemotysis?: No Have you traveled outside the country in the last 6 months?: No Isolation: Standard ROS Review of Systems Constitutional: Malaise and Fatigue Respiratoy: Non-Productive Cough, Orthopnea, Short of Breath and Wheezing Cardiovascular: Other (dyspnea) Gastrointestinal/Abdominal: No Symptoms Reported Neurological: Weakness (generalized) Musculoskeletal: No Symptoms Reported Integumentary: No Symptoms Reported Hematologic/Lymphatic: No Symptoms Reported Endocrine: No Symptoms Reported PE Vital Signs Vitals: Pulse Rate 89 Respiratory Rate 26 Blood Pressure [Left Calf] 173/72 Blood Pressure [Left Arm] 139/77 Blood Pressure [Right Arm] 158/71 Blood Pressure 155/90 O2 Sat by Pulse Oximetry 88 General Limitations: No Limitations General Appearance: Alert, Anxious and In Distress (mild resp distress) Head Head Exam: Normal Inspection ENT ENT Exam: Normal Exam Neck Neck Exam: Normal Inspection and Other (obese and unable to eval for JVD/HJR) Chest Chest Inspection: Normal Inspection Respiratory Respiratory Exam: Bilateral: Wheezing and Bilateral: Decreased Breath Sounds and Lower: Decreased Breath Sounds Cardiovascular Cardiovascular Exam: Regular Rate and Normal Rhythm Abdominal Exam Abdominal Exam: Normal Inspection Extremities Extremities Exam: Normal Inspection Neurologic Neurological Exam: Alert and Oriented X3 Psychiatric Psychiatric Exam: Anxious (mildly) Skin Skin Exam: Warm, Dry and Intact COURSE Treatment Treatment: Arrived hypoxic/dyspneic and wheezing throughout--aerosols and solumedrol ordered CXR surprisingly clear Sats up with oxygen via NC but still dyspneic with any exertion Admits to not taking lasix last few days and BNP elevated elevated d-dimer, CKD--cannot do CTA admit ICU--discussed with Dr. Linder, admit to Dr. Mckeon Attempting to reconcile meds but pt not able to tell us names/doses--son trying to find list/meds and bring from home Reevaluation 1st: Improved 2nd: Improved 3rd: Improved Consultation Consultation Comments: Discussed with Dr. Linder--admit ICU, Lovenox and CHF/COPD interventions Critical Care Notes Total Time (mins): 90 Critical Diagnosis: Acute hypoxic respiratory failure, Acute COPD exacerbation, Acute CHF exacerbation Critical Interventions: IV, oxygen, ekg, monitor Aerosols, steroids, antibiotics, Lovenox Reassessments Discuss with extension work instructor doctor Admit to ICU ROR Labs Reviewed Laboratory Results Reviewed?: Yes Result Diagrams: 10/29/20 17:54 10/29/20 17:54 Laboratory: WBC 13.7 X10^3/uL (3.6-10.0) H 10/29/20 17:54 RBC 4.94 X10^6/uL (3.5-5.4) 10/29/20 17:54 Hgb 14.7 g/dL (12.0-16.0) 10/29/20 17:54 Hct 44.0 % (36.0-47.0) 10/29/20 17:54 MCV 89.1 fL (80.0-100.0) 10/29/20 17:54 MCH 29.8 pg (27.0-34.0) 10/29/20 17:54 MCHC 33.5 g/dL (33.0-35.0) 10/29/20 17:54 RDW 15.6 % (11.6-16.5) 10/29/20 17:54 Plt Count 229 X10^3/uL (150.0-450.0) 10/29/20 17:54 MPV 9.1 fL (7.4-11.0) 10/29/20 17:54 Neut % (Auto) 72.0 % (42.0-75.0) 10/29/20 17:54 Lymph % (Auto) 20.9 % (21.0-51.0) L 10/29/20 17:54 [place] % (Auto) 6.0 % (0.0-13.0) 10/29/20 17:54 Eos % (Auto) 0.4 % (0.9-2.9) L 10/29/20 17:54 Baso % (Auto) 0.7 % (0.2-1.0) 10/29/20 17:54 Neut # (Auto) 9.8 x10^3/uL (2.2-4.8) H 10/29/20 17:54 Lymph # (Auto) 2.8 X10^3/uL (1.3-2.9) 10/29/20 17:54 [place] # (Auto) 0.8 x10^3/uL (0.3-0.8) 10/29/20 17:54 Eos # (Auto) 0.0 x10^3/uL (0.0-0.2) 10/29/20 17:54 Baso # (Auto) 0.1 X10^3/uL (0.0-0.1) 10/29/20 17:54 Absolute Nucleated RBC 0.4 /100WBC 10/29/20 17:54 PT 17.0 SECONDS (11.8-14.3) 10/29/20 17:54 INR Target Range - 10/29/20 17:54 INR 1.46 (0.8-1.3) H 10/29/20 17:54 APTT 31.2 SECONDS (22.9-36.5) 10/29/20 17:54 PTT Comment - 10/29/20 17:54 D-Dimer 3.14 ug/ml (0.0-0.57) H* 10/29/20 17:54 Sample Site Lrad 10/29/20 17:42 ABG pH 7.420 (7.35-7.45) 10/29/20 17:42 ABG pCO2 26.0 mmHg (35.0-45.0) L 10/29/20 17:42 ABG pO2 55.0 mmHg (80.0-100.0) L 10/29/20 17:42 ABG HCO3 16.9 mmol/L (22-26) L* 10/29/20 17:42 ABG O2 Saturation 89.0 % (90-100) L 10/29/20 17:42 ABG Base Excess -6.1 mmol/L (-2.0-2.0) L 10/29/20 17:42 Pj Test Pos 10/29/20 17:42 A-a Gradient 141.0 mmHg 10/29/20 17:42 FiO2 32.0 10/29/20 17:42 Blood Gas Comments Pt odalys well elj 10/29/20 17:42 Sodium 136 mmol/L (136-145) 10/29/20 17:54 Corrected Sodium 142 mmol/L (136-145) 10/29/20 17:54 Potassium 4.4 mmol/L (3.5-5.1) 10/29/20 17:54 Chloride 101 mmol/L (98-107) 10/29/20 17:54 Carbon Dioxide 17.2 mmol/L (21-32) L 10/29/20 17:54 BUN 32 mg/dL (7-18) H 10/29/20 17:54 Creatinine 1.96 mg/dL (0.55-1.02) H 10/29/20 17:54 Est GFR (MDRD) Af Amer 33 (>60) L 10/29/20 17:54 Est GFR (MDRD) Non-Af 28 (>60) L 10/29/20 17:54 Glucose 369 mg/dL (65-99) H 10/29/20 17:54 Calcium 8.7 mg/dL (8.5-10.1) 10/29/20 17:54 Troponin I < 0.02 ng/mL (0-1.5) 10/29/20 17:54 B-Natriuretic Peptide 1520 pg/mL (0-79) H* 10/29/20 17:54 SARS CoV-2 RNA Rapid LATONIA Negative (NEGATIVE) 10/29/20 18:00 XRAY XRAY Interpreted by: Radiologist X-ray Results: cxr--nothing acute EKG Rate: 78 [place]: Normal Rhythm: NSR Block: None Hypertrophy: None ST: Nonsp Opioid Opioid Risk Tool Age (Angel Luis box if 16-45): No History of Preadolescent Sexual Abuse: No Total: 0 Total Score Risk Category: Low Risk Copyright: Giovani MUELLER predicting aberrant behaviors Instructions Forms: Precautions for COVID19 Patient Portal Social Distancing
[2020-10-29] MEDS ORDERED: LASIX IVP ONE ×2 (19:13→19:22)
--- NOTE | 2020-10-29 19:34 | RAD ---
HISTORYDYSPNEASTUDYCHEST, 1 [id number]/18/2020FINDINGSThe trachea is midline. The cardiac silhouette is unremarkable . The lungs are clear without focal infiltrate or effusion. The bony thorax is unremarkable.IMPRESSIONNo acute cardiopulmonary disease.Electronically signed by: Quinn Jean (Oct 29, 2020 19:31:58)
[2020-10-29] MEDS ORDERED: ZOFRAN INJ 4 MG VIAL IVP PRN (19:35)
[2020-10-29] MEDS ORDERED: TYLENOL 325 MG TAB PO PRN (19:35)
[2020-10-29] MEDS ORDERED: PROVENTIL NEB TX 0.083% 2.5MG/ 3ML NEB PRN (19:36)
[2020-10-29] MEDS ORDERED: LOVENOX INJ 100 MG SYR SC ONE (19:37)
[2020-10-29] MEDS ORDERED: ROCEPHIN 1 GRAM IV PREMIX 1 G/50 ML IV.SOLN. IV ONE (19:38)
[2020-10-29] MEDS: LOVENOX INJ 100 MG SYR SC ONE ×2 (19:41→19:45)
[2020-10-29] MEDS: ROCEPHIN 1 GRAM IV PREMIX 1 G/50 ML IV.SOLN. IV SCH (19:44)
[2020-10-29] MEDS ORDERED: NICOTINE PATCH TD SCH (20:00)
[2020-10-29] MEDS: DUONEB 0.5 MG/3 MG (3 mL) NEB SCH (21:00)
[2020-10-29] MEDS: HumuLIN R SUBCUT PRN (21:25)
[2020-10-29] MEDS ORDERED: HumuLIN R ONE (21:27)
[2020-10-30] MEDS: DUONEB 0.5 MG/3 MG (3 mL) NEB SCH ×6 (00:01→20:22)
[2020-10-30] MEDS: SOLU-Medrol 125 MG VIAL IVP SCH ×3 (06:20→21:55)
[2020-10-30 06:26] LABS: BASOPHILS % (AUTO) 0.4 % (0.2-1.0); HEMATOCRIT 43.7 % (36.0-47.0); HEMOGLOBIN 14.6 g/dL (12.0-16.0); LYMPHOCYTES # (AUTO) 1.5 X10^3/uL (1.3-2.9); LYMPHOCYTES % (AUTO) 14.8 % (21.0-51.0); MEAN CORPUSCULAR HEMOGLOBIN 29.8 pg (27.0-34.0); MEAN CORPUSCULAR HGB CONC 33.4 g/dL (33.0-35.0); MEAN CORPUSCULAR VOLUME 89.3 fL (80.0-100.0); MEAN PLATELET VOLUME 9.6 fL (7.4-11.0); MONOCYTES # (AUTO) 0.6 x10^3/uL (0.3-0.8); MONOCYTES % (AUTO) 5.5 % (0.0-13.0); NEUTROPHILS # (AUTO) 8.1 x10^3/uL (2.2-4.8); NEUTROPHILS % (AUTO) 79.3 % (42.0-75.0); PLATELET COUNT 213 X10^3/uL (150.0-450.0); RED BLOOD COUNT 4.89 X10^6/uL (3.5-5.4); RED CELL DISTRIBUTION WIDTH 15.5 % (11.6-16.5); WHITE BLOOD COUNT 10.2 X10^3/uL (3.6-10.0)
[2020-10-30] MEDS: HumuLIN R SUBCUT PRN ×4 (06:31→22:01)
[2020-10-30 06:33] LABS: CARBON DIOXIDE 20.3 mmol/L (21-32); CREATININE 2.47 mg/dL (0.55-1.02)
[2020-10-30] MEDS: PULMICORT NEB TX 0.5 MG NEB SCH ×2 (08:04→20:22)
[2020-10-30] MEDS ORDERED: NS 250 ML IV 250 ML IV ONE (09:43)
[2020-10-30] MEDS: ROCEPHIN 1 GRAM IV PREMIX 1 G/50 ML IV.SOLN. IV SCH (09:57)
[2020-10-30] MEDS: NYSTATIN POWDER TOP SCH ×2 (11:06→21:51)
[2020-10-30] MEDS: LASIX IVP SCH ×2 (11:06→21:54)
[2020-10-30] MEDS: NS 1000 ML 1,000 ML IV SCH (11:08)
[2020-10-30 12:49] LABS: APPEARANCE,URINE CLEAR (CLEAR); BILIRUBIN,URINE NEGATIVE (NEGATIVE); BLOOD/HEMOGLOBIN,URINE 1+ (NEGATIVE); COLOR,URINE YELLOW (YELLOW); GLUCOSE, URINE 4+ (NEGATIVE); KETONES,URINE NEGATIVE (NEGATIVE); LEUKOCYTE ESTERASE ,URINE NEGATIVE (NEGATIVE); NITRITES,URINE NEGATIVE (NEGATIVE); PROTEIN,URINE 1+ (NEGATIVE); UROBILINOGEN,URINE NORMAL (NORMAL)
[2020-10-30 12:57] LABS: BACTERIA,URINE NEGATIVE /HPF (NEGATIVE); HYALINE CASTS, URINE FEW /LPF (NEGATIVE); SQUAMOUS EPITHELIAL CELL,UR FEW /HPF (NEGATIVE)
[2020-10-30] MEDS: LOVENOX INJ 100 MG SYR SC SCH (14:17)
--- NOTE | 2020-10-30 15:10 | DR.H&P ---
H&P - History & Physical for Day of: H&P Date: 10/29/20 - Chief Complaint Chief Complaint: SHORTNESS OF BREATH, WEAKNESS - History of Present Illness History of Present Illness: IS A 60 YEAR OLD PATIENT OF OURS. SHE PRESENTED TO THE ER WITH COMPLAINTS OF SHORTNESS OF BREATH AND WEAKNESS. SYMPTOMS STARTED TWO DAY PRIOR AND HAVE PROGRESSIVELY GOTTEN WORSE. SHE ALSO ADMITS TO FALLING AT HOME ABOUT A WEEK AGO. WHILE IN THE OFFICE, PATIENTS SATURATIONS WERE IN THE 80s ON ROOM AIR. SHE HAD BEEN USING ALBUTEROL NEB TX AT HOME WITHOUT IMPROVEMENT IN SYMPTOMS. SHE REPORTS THAT SHORTNESS OF BREATH IS WORSE RECLINING AND ON EXERTION. SHE DENIES CHEST PAIN, DIZZINESS, OR FEVER. SHE DOES HAVE A PMH OF CHF AND COPD. ON ARRIVAL TO THE ER, VITALS WERE 98.9-77-26-79%-209/122. SHE WAS PLACED ON OXYGEN VIA NASAL CANNULA AT 3LPM. LABS WERE OBTAINED. ABNORMAL LAB VALUES INCLUDE THE FOLLOWING: WBC 13.7, D-DIMER 3.14, INR 1.46, CARBON DIOXIDE 17.2, BUN 32, CREATININE 1.96, GLUCOSE 369, BNP 1520. ABG WAS OBTAINED AND REVEALED: PH 7.420, PC02 26, P02 55, HC03 16.9, 02 SAT 89, A-A GRADIENT 141, FI02 32.0. URINALYSIS REVEALED: WBC 0-2, RBC 3-5, LEUKOCYTES NEGATIVE, BACTERIA NEGATIVE. OCCULT BLOOD 1+. BLOOD CULTURES WERE SET UP. EKG REVEALED: SINUS RHYTHM WITH HR 78. CHEST XRAY REVEALED: NO ACUTE CARDIOPULMONARY DISEASE. IN THE ER, SHE WAS GIVEN DUONEBS X 3, SOLU-MEDROL 125MG IV X 1, LASIX 40MG IV X 1, LOVENOX 100MG SC X 1. BLOOD PRESSURE DECREASED TO 152/71. SHE WAS ADMITTED TO THE HOSPITAL FOR FURTHER EVALUATION AND TREATMENT OF ACUTE HYPOXIC RESPIRATORY FAILURE, ACUTE COPD EXACERBATION, AND ACUTE CHF EXACERBATION. SHE WAS STARTED ON NS AT KVO, LASIX 20MG IV BID X 2 DOSES, PROVENTIL NEBS Q4H PRN, DUONEBS Q4H, PULMICORT NEBS BID, ROCEPHIN 1G IV DAILY, LOVENOX 100MG SC DAILY, HUMULIN R SLIDING SCALE, SOLU-MEDROL 80MG IV Q8H, [place] TATIN POWDER BID, AND ZOFRAN 4MG IV Q6H PRN. OTHERWISE, WE PLAN TO FOLLOW UP WITH AM LABS AND CHEST XRAY. TIME SPENT ON CLINICAL ASSESSMENT, REVIEWING LABS AND IMAGING, DECISION MAKING, AND DOCUMENTATION GREATER THAN 75 MINUTES. - Past Medical History Past Medical History: Hypertension, Diabetes, Renal Disease, Depression, Anxiety, Hypothyroidism, Anemia, CVA, COPD, Asthma, GERD, CHF Additional Medical History: PULMONARY EMBOLISMS, CONSTIPATION, UTIs, DDD, - Past Surgical History Surgical History: Appendectomy, Tonsillectomy, Other Additional Surgical History: OVARIAN CYST, CARPEL TUNNEL RIGHT ARM, NASAL POLYPS - Family History Family Medical History: Cancer - Social History Does patient currently use any type of tobacco product: No Have you used tobacco products in the last 12 months: No Type of Tobacco Use: None Does any household member use tobacco: No Alcohol Use: None - Medications Home Medications: DAIRY PRODUCTS Allergy (Uncoded 10/29/20 17:42) CONTINUE taking the following medications allopurinol 100 mg PO DAILY 10/29/20 [History] aspirin 81 mg PO DAILY 10/29/20 [History] clonazepam 0.5 mg PO HS 10/29/20 [History] fenofibrate 54 mg PO DAILY 10/29/20 [History] fluoxetine 40 mg PO DAILY 10/29/20 [History] furosemide 40 mg PO DAILY 10/29/20 [History] gabapentin 300 mg PO BID 10/29/20 [History] insulin degludec [Tresiba FlexTouch U-200] 90 unit SUBCUT DAILY 10/29/20 [History] metoprolol tartrate 50 mg PO DAILY 10/29/20 [History] primidone 50 mg PO BID 10/29/20 [History] tramadol 50 mg PO TID 10/29/20 [History] levothyroxine 88 mcg PO DAILY PRN 10/30/20 [History] pantoprazole 40 mg PO DAILY 10/30/20 [History] potassium chloride 20 meq PO PRN PRN 10/30/20 [History] topiramate 50 mg PO DAILY 10/30/20 [History] - Review of Systems Constitutional: Weakness Eyes: No Symptoms Reported ENT: No Symptoms Reported Respiratory: See HPI, Shortness of Breath, SOB with Excertion, Wheezing Cardiovascular: Edema (GENERALIZED EDEMA ) Gastrointestinal: No Symptoms Reported Genitourinary: No Symptoms Reported Musculoskeletal: No Symptoms Reported Skin: No Symptoms Reported Neurological: No Symptoms Reported - Physical Exam Vital Signs: Temperature 97.8 F Pulse Rate [Apical] 88 Pulse Rate [Left Radial] 84 Pulse Rate 88 Respiratory Rate 20 Blood Pressure [Left Calf] 140/63 Blood Pressure [Left Arm] 153/70 Blood Pressure [Right Arm] 158/71 Blood Pressure 140/63 O2 Sat by Pulse Oximetry 97 Oriented: Normal Eyes: Normal Ear: Normal Nose: Normal Throat: Normal Respiratory: Wheezes Throughout Cardiovascular: Normal : Normal Auscultation: Bowel Sounds: Normal Palpation: Normal Tenderness: Normal Skin: Normal Musculoskeletal: Normal Psychiatric: Normal Mood Description: Calm Affect: Normal Speech Pattern: Clear - Assessment/Plan (1) Acute respiratory failure with hypoxia Status: Acute Plan: NS AT KVO, LASIX 20MG IV BID X 2 DOSES, PROVENTIL NEBS Q4H PRN, DUONEBS Q4H, PULMICORT NEBS BID, ROCEPHIN 1G IV DAILY, LOVENOX 100MG SC DAILY, HUMULIN R SLIDING SCALE, SOLU-MEDROL 80MG IV Q8H, NYSTATIN POWDER BID, AND ZOFRAN 4MG IV Q6H PRN. (2) CHF exacerbation Qualifiers: Heart failure type: unspecified Qualified Code(s): I50.9 - Heart failure, unspecified Status: Acute (3) COPD with acute exacerbation Status: Acute - Review H&P Reviewed: Yes Patient was examined?: Yes - Allergies Allergies/Adverse Reactions: Allergies Allergy/AdvReac Type Severity Reaction Status Date / Time DAIRY PRODUCTS Allergy Uncoded 10/29/20 17:42
[2020-10-30] MEDS ORDERED: SNACK - Diabetic Appropriate PO SCH (20:00)
[2020-10-30] MEDS: PROTONIX TAB 40 MG PO SCH (21:52)
[2020-10-30] MEDS: MYSOLINE PO SCH (21:52)
[2020-10-30] MEDS: ZYLOPRIM PO SCH (21:52)
[2020-10-30] MEDS: SYNTHROID 88 mcg TAB PO SCH (21:52)
[2020-10-30] MEDS: PROzac PO SCH (21:53)
[2020-10-30] MEDS: ASPIRIN EC 81 MG PO SCH (21:54)
[2020-10-30] MEDS: NEURONTIN CAP 300 MG PO SCH (21:54)
[2020-10-30] MEDS: LOPRESSOR TAB 50 MG PO SCH (21:54)
[2020-10-30] MEDS: KLONOPIN TAB 0.5 MG PO SCH (21:55)
[2020-10-30] MEDS: ULTRAM PO SCH (21:56)
[2020-10-30] MEDS: TOPAMAX PO SCH (21:58)
[2020-10-30] MEDS: PATIENT'S HOME MEDICATION SUBCUT SCH ×2 (21:59→22:00)
[2020-10-31] MEDS: DUONEB 0.5 MG/3 MG (3 mL) NEB SCH ×6 (00:30→21:08)
[2020-10-31] MEDS: SOLU-Medrol 125 MG VIAL IVP SCH (06:20)
[2020-10-31] MEDS: HumuLIN R SUBCUT PRN ×3 (06:23→20:58)
[2020-10-31] MEDS: ULTRAM PO SCH ×3 (06:38→21:29)
--- NOTE | 2020-10-31 06:38 | RAD ---
HISTORYShortness of breath.STUDYCHEST, 1 [id number]/10/2021 and 07/08/2019.FINDINGSThe trachea is midline. The cardiac silhouette is within normal limits. The lungs are clear without focal consolidation, pleural effusion or pneumothorax. There is an old displaced and impacted fracture of the proximal right humerus. The bony thorax is grossly unremarkable.IMPRESSIONNo acute cardiopulmonary disease.Old fracture of the proximal right humerus.Electronically signed by: TRISH WOLFF (Oct 31, 2020 06:36:05)
[2020-10-31 06:39] LABS: BASOPHILS % (AUTO) 0.2 % (0.2-1.0); HEMATOCRIT 40.6 % (36.0-47.0); HEMOGLOBIN 13.7 g/dL (12.0-16.0); LYMPHOCYTES # (AUTO) 0.9 X10^3/uL (1.3-2.9); LYMPHOCYTES % (AUTO) 8.6 % (21.0-51.0); MEAN CORPUSCULAR HEMOGLOBIN 29.7 pg (27.0-34.0); MEAN CORPUSCULAR HGB CONC 33.8 g/dL (33.0-35.0); MONOCYTES # (AUTO) 0.4 x10^3/uL (0.3-0.8); MONOCYTES % (AUTO) 3.6 % (0.0-13.0); NEUTROPHILS # (AUTO) 9.3 x10^3/uL (2.2-4.8); NEUTROPHILS % (AUTO) 87.6 % (42.0-75.0); PLATELET COUNT 191 X10^3/uL (150.0-450.0); RED BLOOD COUNT 4.62 X10^6/uL (3.5-5.4); RED CELL DISTRIBUTION WIDTH 15.7 % (11.6-16.5); WHITE BLOOD COUNT 10.6 X10^3/uL (3.6-10.0)
[2020-10-31 06:43] LABS: CALCIUM 8.8 mg/dL (8.5-10.1); CARBON DIOXIDE 24.6 mmol/L (21-32); COR CA(FOR HYPOALB) 9.6 mg/dL (8.5-10.1); CREATININE 2.09 mg/dL (0.55-1.02); TOTAL PROTEIN 6.8 g/dL (6.4-8.2)
[2020-10-31] MEDS: ASPIRIN EC 81 MG PO SCH (08:44)
[2020-10-31] MEDS: LOPRESSOR TAB 50 MG PO SCH (08:45)
[2020-10-31] MEDS: SYNTHROID 88 mcg TAB PO SCH (08:45)
[2020-10-31] MEDS: ZYLOPRIM PO SCH (08:45)
[2020-10-31] MEDS: PROzac PO SCH (08:45)
[2020-10-31] MEDS: PROTONIX TAB 40 MG PO SCH (08:45)
[2020-10-31] MEDS: NEURONTIN CAP 300 MG PO SCH ×2 (08:46→20:57)
[2020-10-31] MEDS: LOVENOX INJ 100 MG SYR SC SCH (08:46)
[2020-10-31] MEDS: ROCEPHIN 1 GRAM IV PREMIX 1 G/50 ML IV.SOLN. IV SCH (08:47)
[2020-10-31] MEDS: TOPAMAX PO SCH (08:49)
[2020-10-31] MEDS: NYSTATIN POWDER TOP SCH ×2 (08:54→20:59)
[2020-10-31] MEDS ORDERED: PATIENT'S HOME MEDICATION SUBCUT SCH (09:00)
[2020-10-31] MEDS: PULMICORT NEB TX 0.5 MG NEB SCH ×2 (09:01→21:08)
[2020-10-31] MEDS: MYSOLINE PO SCH ×2 (09:57→20:55)
[2020-10-31] MEDS: NS 1000 ML 1,000 ML IV SCH (17:29)
[2020-10-31] MEDS ORDERED: COREG TAB 12.5 MG ONE (19:46)
[2020-10-31] MEDS: KLONOPIN TAB 0.5 MG PO SCH (20:55)
[2020-10-31] MEDS: COREG TAB 12.5 MG PO SCH (20:57)
[2020-10-31] MEDS: PATIENT'S HOME MEDICATION SUBCUT SCH (21:00)
--- NOTE | 2020-10-31 22:17 | CT ---
HISTORYHypoxiaSTUDYCHEST W/O CONCOMPARISONChest radiograph, October 31, 2020TECHNIQUEAxial non-contrast images of the chest with coronal and sagittal reformats.Radiation dose: 510.10 mGy-cm total DLPFINDINGSTrace pericardial effusion.Aorta and pulmonary arteries are normal in caliber.No hilar or mediastinal adenopathy.Nonspecific enlargement of the right thyroid lobe with no focal nodule delineated.Large cysts throughout the liver.Partially imaged bilateral renal cysts.No effusion, focal consolidation or pneumothorax.No focal concerning lung parenchymal lesion identified.Chronic right humeral head/neck fracture.No acute osseous abnormality.Multilevel mild degenerative disc disease without vertebral body height loss.IMPRESSION1. No acute intrathoracic abnormality identified.2. Findings consistent with autosomal dominant polycystic kidney disease; as discussed on a CT abdomen/pelvis report from December 18, 2018.Electronically signed by: Francisco Londono (Oct 31, 2020 22:15:43)
[2020-11-01] MEDS: DUONEB 0.5 MG/3 MG (3 mL) NEB SCH ×6 (00:50→21:35)
--- NOTE | 2020-11-01 06:04 | RAD ---
HISTORYSOBSTUDYCHEST, 1 [id number]/12/2021.FINDINGSThe trachea is midline. The cardiac silhouette is unremarkable . The lungs are clear without focal infiltrate or effusion. There is an old fracture of the proximal right humerus. The bony thorax is unremarkable.IMPRESSIONNo acute cardiopulmonary disease.Electronically signed by: TRISH WOLFF (Nov 01, 2020 06:02:32)
[2020-11-01] MEDS: ULTRAM PO SCH ×4 (06:10→21:31)
[2020-11-01 06:50] LABS: BASOPHILS % (AUTO) 0.3 % (0.2-1.0); HEMATOCRIT 40.1 % (36.0-47.0); HEMOGLOBIN 13.3 g/dL (12.0-16.0); LYMPHOCYTES % (AUTO) 21.4 % (21.0-51.0); MEAN CORPUSCULAR HEMOGLOBIN 29.8 pg (27.0-34.0); MEAN CORPUSCULAR HGB CONC 33.2 g/dL (33.0-35.0); MEAN CORPUSCULAR VOLUME 89.9 fL (80.0-100.0); MEAN PLATELET VOLUME 10.2 fL (7.4-11.0); MONOCYTES # (AUTO) 0.7 x10^3/uL (0.3-0.8); MONOCYTES % (AUTO) 7.6 % (0.0-13.0); NEUTROPHILS # (AUTO) 6.5 x10^3/uL (2.2-4.8); NEUTROPHILS % (AUTO) 70.7 % (42.0-75.0); PLATELET COUNT 149 X10^3/uL (150.0-450.0); RED BLOOD COUNT 4.46 X10^6/uL (3.5-5.4); RED CELL DISTRIBUTION WIDTH 15.6 % (11.6-16.5); WHITE BLOOD COUNT 9.2 X10^3/uL (3.6-10.0)
[2020-11-01 06:57] LABS: ALBUMIN 2.6 g/dL (3.4-5.0); CALCIUM 8.3 mg/dL (8.5-10.1); CARBON DIOXIDE 28.5 mmol/L (21-32); COR CA(FOR HYPOALB) 9.4 mg/dL (8.5-10.1); CREATININE 1.9 mg/dL (0.55-1.02); TOTAL PROTEIN 6.1 g/dL (6.4-8.2)
[2020-11-01] MEDS: PULMICORT NEB TX 0.5 MG NEB SCH ×2 (09:33→21:35)
[2020-11-01] MEDS: COREG TAB 12.5 MG PO SCH ×2 (10:00→20:45)
[2020-11-01] MEDS: ROCEPHIN 1 GRAM IV PREMIX 1 G/50 ML IV.SOLN. IV SCH (10:00)
[2020-11-01] MEDS: NYSTATIN POWDER TOP SCH ×2 (10:00→21:30)
[2020-11-01] MEDS: SYNTHROID 88 mcg TAB PO SCH (10:00)
[2020-11-01] MEDS: TOPAMAX PO SCH (10:00)
[2020-11-01] MEDS: ASPIRIN EC 81 MG PO SCH (10:00)
[2020-11-01] MEDS: NEURONTIN CAP 300 MG PO SCH ×2 (10:00→20:45)
[2020-11-01] MEDS: PROzac PO SCH (10:00)
[2020-11-01] MEDS: ZYLOPRIM PO SCH (10:00)
[2020-11-01] MEDS: MYSOLINE PO SCH ×2 (10:00→20:45)
[2020-11-01] MEDS: LOVENOX INJ 100 MG SYR SC SCH (14:09)
[2020-11-01] MEDS: NS 1000 ML 1,000 ML IV SCH (14:16)
[2020-11-01] MEDS: PROTONIX TAB 40 MG PO SCH (14:17)
[2020-11-01] MEDS: KLONOPIN TAB 0.5 MG PO SCH (20:46)
[2020-11-01] MEDS: PATIENT'S HOME MEDICATION SUBCUT SCH (21:31)
[2020-11-02] MEDS: DUONEB 0.5 MG/3 MG (3 mL) NEB SCH ×4 (01:25→14:21)
[2020-11-02 05:02] LABS: BASOPHILS # (AUTO) 0.1 X10^3/uL (0.0-0.1); BASOPHILS % (AUTO) 1.5 % (0.2-1.0); EOSINOPHILS # (AUTO) 0.1 x10^3/uL (0.0-0.2); EOSINOPHILS % (AUTO) 0.8 % (0.9-2.9); HEMATOCRIT 38.6 % (36.0-47.0); HEMOGLOBIN 12.9 g/dL (12.0-16.0); LYMPHOCYTES # (AUTO) 2.5 X10^3/uL (1.3-2.9); LYMPHOCYTES % (AUTO) 36.3 % (21.0-51.0); MEAN CORPUSCULAR HEMOGLOBIN 29.8 pg (27.0-34.0); MEAN CORPUSCULAR HGB CONC 33.4 g/dL (33.0-35.0); MEAN CORPUSCULAR VOLUME 89.2 fL (80.0-100.0); MEAN PLATELET VOLUME 9.7 fL (7.4-11.0); MONOCYTES # (AUTO) 0.5 x10^3/uL (0.3-0.8); MONOCYTES % (AUTO) 7.5 % (0.0-13.0); NEUTROPHILS # (AUTO) 3.6 x10^3/uL (2.2-4.8); NEUTROPHILS % (AUTO) 53.9 % (42.0-75.0); PLATELET COUNT 140 X10^3/uL (150.0-450.0); RED BLOOD COUNT 4.33 X10^6/uL (3.5-5.4); RED CELL DISTRIBUTION WIDTH 15.6 % (11.6-16.5); WHITE BLOOD COUNT 6.8 X10^3/uL (3.6-10.0)
[2020-11-02 05:21] LABS: ALANINE AMINOTRANSFERASE 15 Units/L (12-78); ALBUMIN 2.6 g/dL (3.4-5.0); ALKALINE PHOSPHATASE 74 Units/L (46-116); ASPARTATE AMINO TRANSFERASE 18 Units/L (15-37); BLOOD UREA NITROGEN 37 mg/dL (7-18); CARBON DIOXIDE 28.2 mmol/L (21-32); CHLORIDE 106 mmol/L (98-107); COR CA(FOR HYPOALB) 9.1 mg/dL (8.5-10.1); CREATININE 1.72 mg/dL (0.55-1.02); SODIUM 142 mmol/L (136-145); TOTAL PROTEIN 6.1 g/dL (6.4-8.2); eGFR NON BLACK RACES 32 (>60)
--- NOTE | 2020-11-02 05:30 | RAD ---
HISTORYSOBSTUDYCHEST, 1 [id number]/13/2021FINDINGSThe trachea is midline. The cardiac silhouette is unremarkable . The lungs are clear without focal infiltrate or effusion. Pulmonary vasculature within normal limits. No pneumothorax. The bony thorax is unremarkable.IMPRESSIONNo acute cardiopulmonary disease.Electronically signed by: Manohar Molina (Nov 02, 2020 05:28:50)
[2020-11-02] MEDS: ULTRAM PO SCH ×2 (05:50→13:45)
[2020-11-02] MEDS: NYSTATIN POWDER TOP SCH (08:53)
[2020-11-02] MEDS: SYNTHROID 88 mcg TAB PO SCH (08:53)
[2020-11-02] MEDS: NEURONTIN CAP 300 MG PO SCH (08:54)
[2020-11-02] MEDS: PROzac PO SCH (08:54)
[2020-11-02] MEDS: ASPIRIN EC 81 MG PO SCH (08:54)
[2020-11-02] MEDS: ZYLOPRIM PO SCH (08:54)
[2020-11-02] MEDS: LOVENOX INJ 100 MG SYR SC SCH (08:55)
[2020-11-02] MEDS: COREG TAB 12.5 MG PO SCH (08:56)
[2020-11-02] MEDS: PROTONIX TAB 40 MG PO SCH (08:56)
[2020-11-02] MEDS: ROCEPHIN 1 GRAM IV PREMIX 1 G/50 ML IV.SOLN. IV SCH (08:57)
[2020-11-02] MEDS: TOPAMAX PO SCH (08:57)
[2020-11-02] MEDS ORDERED: TRICOR TAB 48 MG PO SCH (09:00)
[2020-11-02] MEDS: MYSOLINE PO SCH (09:03)
[2020-11-02] MEDS: PULMICORT NEB TX 0.5 MG NEB SCH (09:17)
[2020-11-02] MEDS: NS 1000 ML 1,000 ML IV SCH (10:51)
--- NOTE | 2020-11-02 14:10 | NM ---
HISTORYELEVATEDE D-DIMER 3.14, shortness of breathSTUDYNuclear medicine PERFUSION LUNG SCAN ONLY, patient was injected with 5.6 millicuries of technetium 99 M labeled MAA with perfusion imaging performed of the lungs in multiple planesCOMPARISONChest x-ray from sameMER[facility]ITALSSegmental wedge-shaped defect is seen in the right upper lobe with no corresponding abnormality seen on x-ray. Two other questionable defects are seen in the mid to lower left lung.IMPRESSIONExam has high probability for pulmonary embolus using revised PIOPED criteria. Consider confirmation with CTA.Electronically signed by: Julio Laureano (Nov 02, 2020 14:08:09)
[2020-11-02 15:08] VITALS: BP 130/75
== END 2020-11-02 15:58 | disposition home health service (06) | DRG 189 ==
LOC: ER 17:32 → ICU 19:30
PROVIDERS: ADMIT Family Medicine; ATTEND Internal Medicine
DX: Z86.73 Personal history of transient ischemic attack (TIA), and cerebral infarction without residual deficits; E03.8 Other specified hypothyroidism; Z20.822 Contact with and (suspected) exposure to COVID-19; J96.01 Acute respiratory failure with hypoxia; I50.9 Heart failure, unspecified; R26.89 Other abnormalities of gait and mobility; J44.1 Chronic obstructive pulmonary disease with (acute) exacerbation; R94.31 Abnormal electrocardiogram [ECG] [EKG]; E11.65 Type 2 diabetes mellitus with hyperglycemia; I11.0 Hypertensive heart disease with heart failure